=== PATIENT | female | born 1955 | race Caucasian/White ===

== ENCOUNTER 2017-08-07 15:45 | Inpatient (IN) | payer MEDICARE, MEDICAID ==
[2017-08-07 16:25] LABS: CHLORIDE,CL 105 mEq/L (98-106); SODIUM,NA 142 mEq/L (136-145)
[2017-08-07] MEDS ORDERED: Sodium Chloride 0.9% 10 ML Syringe FLUSH PRN (17:21)
[2017-08-07] MEDS ORDERED: Furosemide 40 MG/4 ML VIAL IVPUSH ONE (17:38)
[2017-08-07] MEDS ORDERED: Insulin Detemir 100 Units/ML 3 ML Pen SUBCUT SCH ×2 (18:00→21:00)
[2017-08-07] MEDS: Insulin Aspart 100 Units/ML 3 ML Pen SUBCUT SCH (18:06)
[2017-08-07] MEDS: Diltiazem 25 MG/5 ML SDV IVPUSH ONE ×2 (18:07→18:40)
[2017-08-07] MEDS: Diltiazem 120 MG Cap.CD PO SCH (18:12)
[2017-08-07] MEDS ORDERED: Warfarin 5 MG Tab PO STA (18:29)
[2017-08-07] MEDS ORDERED: Diltiazem 25 MG/5 ML SDV ONE (18:51)
[2017-08-07] MEDS ORDERED: Enoxaparin 40 MG/0.4 ML Syringe SUBCUT SCH (19:00)
[2017-08-07] MEDS: Insulin Detemir 100 Units/ML 3 ML Pen SUBCUT SCH (21:02)
[2017-08-07] MEDS ORDERED: Metoprolol Tartrate 5 MG/5 ML SDV IVPUSH ONE (21:45)
[2017-08-08] MEDS: Diltiazem 120 MG Cap.CD PO SCH (07:35)
[2017-08-08] MEDS: metFORMIN 500 MG Tab PO SCH (07:35)
[2017-08-08] MEDS: atorvaSTATin 20 MG Tab PO SCH (07:35)
[2017-08-08 08:04] LABS: CHLORIDE,CL 104 mEq/L (98-106); SODIUM,NA 142 mEq/L (136-145)
[2017-08-08] MEDS: Insulin Aspart 100 Units/ML 3 ML Pen SUBCUT SCH ×2 (08:30→17:57)
[2017-08-08] MEDS ORDERED: Diltiazem 120 MG Cap.CD PO ONE (09:18)
[2017-08-08] MEDS: Insulin Detemir 100 Units/ML 3 ML Pen SUBCUT SCH ×2 (09:47→20:38)
--- NOTE | 2017-08-08 11:34 | PCM.PN ---
- General Info Date of Service: 08/08/17 Admission Dx/Problem (Free Text): New onset atrial fib with RVR Functional Status: Reports: Pain Controlled, Tolerating Diet, Ambulating - Review of Systems General: Denies: Fever, Weakness, Fatigue HEENT: Reports: No Symptoms Pulmonary: Reports: Shortness of Breath. Denies: Cough Cardiovascular: Reports: Edema. Denies: Chest Pain, Lightheadedness Gastrointestinal: Denies: Abdominal Pain, Nausea, Vomiting Genitourinary: Reports: No Symptoms Musculoskeletal: Reports: No Symptoms Skin: Reports: No Symptoms Neurological: Reports: No Symptoms - Patient Data Vitals - Most Recent: Last Vital Signs Temp 99.1 F 08/08/17 08:00 Pulse 138 H 08/08/17 09:44 Resp 20 08/08/17 08:00 BP 146/71 H 08/08/17 09:44 Pulse Ox 91 L 08/08/17 08:00 Weight - Most Recent: 353 lb 4.8 oz I&O - Last 24 Hours: Intake & Output 08/07/17 08/08/17 08/08/17 22:59 06:59 14:59 Intake Total 365 2600 Output Total 900 750 Balance -535 1850 Lab Results Last 24 Hours: Laboratory Results - last 24 hr 08/07/17 08/07/17 08/07/17 Range/Units 15:56 15:56 17:37 WBC 15.0 H (5.0-10.0) 10^3/uL RBC 4.35 (4.00-5.50) 10^6/uL Hgb 12.7 (12.0-16.0) g/dL Hct 41.5 (37.0-47.0) % MCV 95.4 H (82.0-94.0) fL MCH 29.2 (27.0-32.0) pg MCHC 30.6 L (33.0-38.0) g/dL RDW Coeff of Nelson 13.4 (11.0-15.0) % Plt Count 335 (150-400) 10^3/uL Neut % (Auto) 74.3 (35-85) % Lymph % (Auto) 15.9 (10-55) % Mck[place]ley % (Auto) 7.9 (0-16) % Eos % (Auto) 1.4 (0-5) % Baso % (Auto) 0.5 (0-3) % Neut # (Auto) 11.18 H (1.80-7.00) 10^3/uL Lymph # (Auto) 2.39 (1.00-4.80) 10^3/uL Mck[place]ley # (Auto) 1.19 H (0.00-0.80) 10^3/uL Eos # (Auto) 0.21 (0.00-0.45) 10^3/uL Baso # (Auto) 0.07 10^3/uL PT 12.4 H (9.7-12.3) SEC INR 1.14 (0.92-1.18) Sodium 142 (136-145) mEq/L Potassium 4.5 (3.5-5.0) mEq/L Chloride 105 (98-106) mEq/L Carbon Dioxide 31 (21-32) mmol/L BUN 16 (7-18) mg/dL Creatinine 1.1 H (0.6-1.0) mg/dL Est Cr Clr Drug Dosing TNP Estimated GFR (MDRD) 50 L (>=60) mL/min Glucose 131 H (75-99) mg/dL POC Glucose (75-105) mg/dl Calcium 9.0 (8.4-10.1) mg/dL Total Bilirubin 0.9 (0.0-1.0) mg/dL AST 20 (15-37) U/L ALT 26 (12-78) U/L Alkaline Phosphatase 69 (46-116) U/L NT-Pro-B Natriuret Pep 696 (0-1000) pg/mL Total Protein 7.0 (6.4-8.2) g/dL Albumin 3.1 L (3.4-5.0) g/dL TSH, Ultra Sensitive 1.80 (0.36-5.60) uIU/mL 08/07/17 08/08/17 08/08/17 Range/Units 19:33 05:11 07:23 WBC 15.3 H (5.0-10.0) 10^3/uL RBC 4.25 (4.00-5.50) 10^6/uL Hgb 12.3 (12.0-16.0) g/dL Hct 40.5 (37.0-47.0) % MCV 95.3 H (82.0-94.0) fL MCH 28.9 (27.0-32.0) pg MCHC 30.4 L (33.0-38.0) g/dL RDW Coeff of Nelson 13.4 (11.0-15.0) % Plt Count 331 (150-400) 10^3/uL Neut % (Auto) 73.7 (35-85) % Lymph % (Auto) 15.9 (10-55) % Mck[place] % (Auto) 8.5 (0-16) % Eos % (Auto) 1.5 (0-5) % Baso % (Auto) 0.4 (0-3) % Neut # (Auto) 11.25 H (1.80-7.00) 10^3/uL Lymph # (Auto) 2.43 (1.00-4.80) 10^3/uL [place]ck[place]ley # (Auto) 1.29 H (0.00-0.80) 10^3/uL Eos # (Auto) 0.23 (0.00-0.45) 10^3/uL Baso # (Auto) 0.06 10^3/uL PT (9.7-12.3) SEC INR (0.92-1.18) Sodium (136-145) mEq/L Potassium (3.5-5.0) mEq/L Chloride (98-106) mEq/L Carbon Dioxide (21-32) mmol/L BUN (7-18) mg/dL Creatinine (0.6-1.0) mg/dL Est Cr Clr Drug Dosing Estimated GFR (MDRD) (>=60) mL/min Glucose (75-99) mg/dL POC Glucose 165 H 83 (75-105) mg/dl Calcium (8.4-10.1) mg/dL Total Bilirubin (0.0-1.0) mg/dL AST (15-37) U/L ALT (12-78) U/L Alkaline Phosphatase (46-116) U/L NT-Pro-B Natriuret Pep (0-1000) pg/mL Total Protein (6.4-8.2) g/dL Albumin (3.4-5.0) g/dL TSH, Ultra Sensitive (0.36-5.60) uIU/mL 08/08/17 08/08/17 Range/Units 07:45 07:45 WBC (5.0-10.0) 10^3/uL RBC (4.00-5.50) 10^6/uL Hgb (12.0-16.0) g/dL Hct (37.0-47.0) % MCV (82.0-94.0) fL MCH (27.0-32.0) pg MCHC (33.0-38.0) g/dL RDW Coeff of Nelson (11.0-15.0) % Plt Count (150-400) 10^3/uL Neut % (Auto) (35-85) % Lymph % (Auto) (10-55) % [place] % (Auto) (0-16) % Eos % (Auto) (0-5) % Baso % (Auto) (0-3) % Neut # (Auto) (1.80-7.00) 10^3/uL Lymph # (Auto) (1.00-4.80) 10^3/uL [place] # (Auto) (0.00-0.80) 10^3/uL Eos # (Auto) (0.00-0.45) 10^3/uL Baso # (Auto) 10^3/uL PT 12.5 H (9.7-12.3) SEC INR 1.15 (0.92-1.18) Sodium 142 (136-145) mEq/L Potassium 4.3 (3.5-5.0) mEq/L Chloride 104 (98-106) mEq/L Carbon Dioxide 32 (21-32) mmol/L BUN 15 (7-18) mg/dL Creatinine 0.9 (0.6-1.0) mg/dL Est Cr Clr Drug Dosing 65.38 Estimated GFR (MDRD) > 60 (>=60) mL/min Glucose 92 D (75-99) mg/dL POC Glucose (75-105) mg/dl Calcium 8.9 (8.4-10.1) mg/dL Total Bilirubin (0.0-1.0) mg/dL AST (15-37) U/L ALT (12-78) U/L Alkaline Phosphatase (46-116) U/L NT-Pro-B Natriuret Pep (0-1000) pg/mL Total Protein (6.4-8.2) g/dL Albumin (3.4-5.0) g/dL TSH, Ultra Sensitive (0.36-5.60) uIU/mL Med Orders - Current: Current Medications Atorvastatin Calcium (Lipitor) 20 mg PO DAILY [facility] Last Admin: 08/08/17 07:35 Dose: 20 mg Diltiazem HCl (Cardizem Cd) 240 mg PO DAILY [facility] Enoxaparin Sodium (Lovenox) 40 mg SUBCUT Q24H [facility] Last Admin: 08/07/17 18:36 Dose: 40 mg Insulin Aspart (Novolog) 45 unit SUBCUT BIDMEALS [facility] Last Admin: 08/08/17 08:30 Dose: Not Given Insulin Detemir (Levemir) 125 unit SUBCUT 0900,2100 [facility] Last Admin: 08/08/17 09:47 Dose: 125 unit Metformin HCl (Glucophage) 1,000 mg PO DAILY [facility] Last Admin: 08/08/17 07:35 Dose: 1,000 mg Rivaroxaban 20 Mg (Tab Non Form) 1 each PO DAILY@1200 [facility] Sodium Chloride (Saline Flush) 10 ml FLUSH ASDIRECTED PRN PRN Reason: Keep Vein Open Discontinued Medications Diltiazem HCl (Diltiazem) 10 mg IVPUSH ONETIME ONE Stop: 08/07/17 17:33 Last Admin: 08/07/17 18:40 Dose: 10 mg Diltiazem HCl (Cardizem Cd) 120 mg PO DAILY [facility] Last Admin: 08/08/17 07:35 Dose: 120 mg Diltiazem HCl (Diltiazem) Confirm Administered Dose 25 mg .ROUTE .STK-MED ONE Stop: 08/07/17 18:52 Last Admin: 08/07/17 18:43 Dose: Not Given Diltiazem HCl (Cardizem Cd) 120 mg PO ONETIME ONE Stop: 08/08/17 09:19 Last Admin: 08/08/17 09:44 Dose: 120 mg Furosemide (Lasix) 40 mg IVPUSH ONETIME ONE Stop: 08/07/17 17:39 Last Admin: 08/07/17 18:12 Dose: 40 mg Insulin Detemir (Levemir) 145 unit SUBCUT BID [facility] Last Admin: 08/07/17 18:32 Dose: Not Given Insulin Detemir (Levemir) 145 unit SUBCUT BID@0900,2100 [facility] Metoprolol Tartrate (Lopressor) 2.5 mg IVPUSH ONETIME ONE Stop: 08/07/17 21:46 Last Admin: 08/07/17 22:07 Dose: 2.5 mg Warfarin Sodium (Coumadin) 5 mg PO DAILY@1200 [facility] Warfarin Sodium (Coumadin) 5 mg PO ONETIME STA Stop: 08/07/17 18:30 Last Admin: 08/07/17 18:51 Dose: 5 mg - Exam General: Alert, Oriented HEENT: Mucous Membr. Moist/[place] Neck: Supple Lungs: Clear to Auscultation, Normal Respiratory Effort Cardiovascular: Irregular Rhythm, Tachycardia GI/Abdominal Exam: Normal Bowel Sounds, Soft, Non-Tender Skin: Warm, Dry Neurological: No New Focal Deficit - Problem List & Annotations (1) Atrial fibrillation with RVR SNOMED Code(s): 710541961389926 Code(s): I48.91 - UNSPECIFIED ATRIAL FIBRILLATION Status: Acute Priority : High Current Visit: Yes - Problem List Review Problem List Initiated/Reviewed/Updated: Yes - My Orders Last 24 Hours: My Active Orders 08/08/17 12:00 Non-Formulary Medication [NF Drug] 1 each PO DAILY@1200 08/09/17 08:00 Diltiazem [Cardizem CD] 240 mg PO DAILY - Assessment Assessment:: Atrial Fib with RVR - Plan Plan:: Patient denies any chest pain. Does still feel short of breath with exertion. Cardiac rhythm still noted atrial fib with rapid response in the 130s, denies palpitations. States "doesn't even feel it". Was given Cardizem x2 IV doses and an oral dose yesterday with minimal response. Was given a dose of IV Metoprolol last night which helped minimally. Oxygen sats are within normal range. BP stable. Will increase Cardizem to 240 mg daily. Patient questioning use of Coumadin, will switch her to Xarelto. Samples found to start patient on 20 mg daily at HS , first dose today. Continue to monitor telemetry and blood pressures. Reevaluate discharge potential in am.
[2017-08-08] MEDS ORDERED: Warfarin 5 MG Tab PO SCH (12:00)
[2017-08-08] MEDS: [UNRECOGNIZED DRUG - REMARK] PO SCH (12:12)
[2017-08-08] MEDS ORDERED: Temazepam 15 MG Cap PO PRN (20:39)
[2017-08-08] MEDS ORDERED: Metoprolol Tartrate 50 MG Tab PO ONE (23:14)
[2017-08-09] MEDS: Diltiazem 120 MG Cap.CD PO SCH (07:40)
[2017-08-09] MEDS: atorvaSTATin 20 MG Tab PO SCH (07:49)
[2017-08-09] MEDS: Insulin Aspart 100 Units/ML 3 ML Pen SUBCUT SCH ×2 (07:49→18:11)
[2017-08-09] MEDS: metFORMIN 500 MG Tab PO SCH (07:49)
[2017-08-09] MEDS: Insulin Detemir 100 Units/ML 3 ML Pen SUBCUT SCH ×2 (09:19→20:57)
[2017-08-09] MEDS: [UNRECOGNIZED DRUG - REMARK] PO SCH (12:16)
[2017-08-09] MEDS: Metoprolol Tartrate 25 MG Tab PO SCH (20:55)
--- NOTE | 2017-08-09 22:31 | PCM.PN ---
- General Info Date of Service: 08/09/17 Admission Dx/Problem (Free Text): New onset atrial fib with RVR Functional Status: Reports: Pain Controlled, Tolerating Diet, Ambulating - Review of Systems General: Reports: Fatigue. Denies: Fever, Weakness HEENT: Reports: Rhinitis Pulmonary: Reports: Shortness of Breath. Denies: Cough, Sputum Cardiovascular: Denies: Chest Pain, Edema, Lightheadedness Gastrointestinal: Denies: Abdominal Pain, Nausea, Vomiting Genitourinary: Reports: No Symptoms Musculoskeletal: Reports: No Symptoms Skin: Reports: No Symptoms Neurological: Reports: No Symptoms - Patient Data Vitals - Most Recent: Last Vital Signs Temp 98.8 F 08/09/17 20:00 Pulse 99 08/09/17 20:55 Resp 16 08/09/17 20:00 BP 105/70 08/09/17 20:55 Pulse Ox 94 L 08/09/17 20:00 Weight - Most Recent: 356 lb 8 oz I&O - Last 24 Hours: Intake & Output 08/09/17 08/09/17 08/09/17 06:59 14:59 22:59 Intake Total 900 1500 Output Total 1000 1200 Balance -100 300 Lab Results Last 24 Hours: Laboratory Results - last 24 hr 08/08/17 08/08/17 08/09/17 Range/Units 17:16 20:35 07:20 PT 14.3 H (9.7-12.3) SEC INR 1.31 H (0.92-1.18) POC Glucose 173 H 107 H (75-105) mg/dl 08/09/17 08/09/17 08/09/17 Range/Units 07:43 11:39 17:28 PT (9.7-12.3) SEC INR (0.92-1.18) POC Glucose 53 L 95 56 L (75-105) mg/dl 08/09/17 Range/Units 20:36 PT (9.7-12.3) SEC INR (0.92-1.18) POC Glucose 179 H (75-105) mg/dl Med Orders - Current: Current Medications Atorvastatin Calcium (Lipitor) 20 mg PO DAILY [facility] Last Admin: 08/09/17 07:49 Dose: 20 mg Diltiazem HCl (Cardizem Cd) 240 mg PO DAILY [facility] Last Admin: 08/09/17 07:40 Dose: 240 mg Insulin Aspart (Novolog) 45 unit SUBCUT BIDMEALS [facility] Last Admin: 08/09/17 18:11 Dose: Not Given Insulin Detemir (Levemir) 125 unit SUBCUT 0900,2100 [facility] Last Admin: 08/09/17 20:57 Dose: 125 unit Metformin HCl (Glucophage) 1,000 mg PO DAILY [facility] Last Admin: 08/09/17 07:49 Dose: 1,000 mg Metoprolol Tartrate (Lopressor) 37.5 mg PO BID [facility] Last Admin: 08/09/17 20:55 Dose: 37.5 mg Rivaroxaban 20 Mg (Tab Non Form) 1 each PO DAILY@1200 [facility] Last Admin: 08/09/17 12:16 Dose: 1 each Sodium Chloride (Saline Flush) 10 ml FLUSH ASDIRECTED PRN PRN Reason: Keep Vein Open Temazepam (Restoril) 15 mg PO BEDTIME PRN PRN Reason: Insomnia Last Admin: 08/08/17 21:01 Dose: 15 mg Discontinued Medications Diltiazem HCl (Diltiazem) 10 mg IVPUSH ONETIME ONE Stop: 08/07/17 17:33 Last Admin: 08/07/17 18:40 Dose: 10 mg Diltiazem HCl (Cardizem Cd) 120 mg PO DAILY [facility] Last Admin: 08/08/17 07:35 Dose: 120 mg Diltiazem HCl (Diltiazem) Confirm Administered Dose 25 mg .ROUTE .STK-MED ONE Stop: 08/07/17 18:52 Last Admin: 08/07/17 18:43 Dose: Not Given Diltiazem HCl (Cardizem Cd) 120 mg PO ONETIME ONE Stop: 08/08/17 09:19 Last Admin: 08/08/17 09:44 Dose: 120 mg Enoxaparin Sodium (Lovenox) 40 mg SUBCUT Q24H [facility] Last Admin: 08/07/17 18:36 Dose: 40 mg Furosemide (Lasix) 40 mg IVPUSH ONETIME ONE Stop: 08/07/17 17:39 Last Admin: 08/07/17 18:12 Dose: 40 mg Insulin Detemir (Levemir) 145 unit SUBCUT BID [facility] Last Admin: 08/07/17 18:32 Dose: Not Given Insulin Detemir (Levemir) 145 unit SUBCUT BID@0900,2100 [facility] Metoprolol Tartrate (Lopressor) 2.5 mg IVPUSH ONETIME ONE Stop: 08/07/17 21:46 Last Admin: 08/07/17 22:07 Dose: 2.5 mg Metoprolol Tartrate (Lopressor) 50 mg PO ONETIME ONE Stop: 08/08/17 23:15 Last Admin: 08/08/17 23:36 Dose: 50 mg Warfarin Sodium (Coumadin) 5 mg PO DAILY@1200 [facility] Warfarin Sodium (Coumadin) 5 mg PO ONETIME STA Stop: 08/07/17 18:30 Last Admin: 08/07/17 18:51 Dose: 5 mg - Exam General: Alert, Oriented HEENT: Mucous Membr. Moist/[place] Neck: Supple Lungs: Clear to Auscultation, Normal Respiratory Effort Cardiovascular: Irregular Rhythm, Tachycardia GI/Abdominal Exam: Normal Bowel Sounds, Soft, Non-Tender Extremities: Normal Inspection, No Pedal Edema Skin: Warm, Dry Neurological: No New Focal Deficit - Problem List & Annotations (1) Atrial fibrillation with RVR SNOMED Code(s): 108453919630388 Code(s): I48.91 - UNSPECIFIED ATRIAL FIBRILLATION Status: Acute Priority : High Current Visit: Yes - Problem List Review Problem List Initiated/Reviewed/Updated: Yes - My Orders Last 24 Hours: My Active Orders 08/09/17 08:00 Diltiazem [Cardizem CD] 240 mg PO DAILY 08/09/17 20:00 Metoprolol Tartrate [Lopressor] 37.5 mg PO BID - Assessment Assessment:: Atrial Fib with RVR - Plan Plan:: Patient denies any chest pain. Does still feel short of breath with exertion. Cardiac rhythm still noted atrial fib with rapid response in the 130s, denies palpitations. States "doesn't even feel it". Was given Cardizem x2 IV doses and an oral dose yesterday with minimal response. Was given a dose of IV Metoprolol last night which helped minimally. Oxygen sats are within normal range. BP stable. Will increase Cardizem to 240 mg daily. Patient questioning use of Coumadin, will switch her to Xarelto. Samples found to start patient on 20 mg daily at HS , first dose today. Continue to monitor telemetry and blood pressures. Reevaluate discharge potential in am. 08-09-2017 Patient continues to complain of SOB with exertion. No chest pain. Does still feel somewhat weak. No palpitations. Continues to be in atrial fib, rate 110s. Was given Metoprolol 50 mg last evening for rate control as rate was in 140s, tolerated well. Blood pressure down this am at 100/66, repeat an hour later after being up and about 133/59. Started on Xarelto last evening. Will continue with Cardizem 240 mg daily. Start Metoprolol 37.5 mg BID. Will obtain echo today. Will have patient follow up with Dr. Crump after discharge. Possible discharge home tomorrow if continues to feel well and rate within better control.
[2017-08-10] MEDS: metFORMIN 500 MG Tab PO SCH (08:10)
[2017-08-10] MEDS: atorvaSTATin 20 MG Tab PO SCH (08:11)
[2017-08-10] MEDS: Insulin Aspart 100 Units/ML 3 ML Pen SUBCUT SCH (08:13)
[2017-08-10] MEDS: Insulin Detemir 100 Units/ML 3 ML Pen SUBCUT SCH (08:14)
[2017-08-10] MEDS: Metoprolol Tartrate 25 MG Tab PO SCH (08:18)
[2017-08-10] MEDS: Diltiazem 120 MG Cap.CD PO SCH (08:21)
--- NOTE | 2017-08-10 12:57 | PCM.DCSUM1 ---
Discharge Summary - Hospital Course Free Text/Narrative:: Patient admitted by Kirsten Cleveland for new onset atrial fib with rapid ventricular response. Patient denied any palpitations or chest pain but had been experiencing more short of breath with any exertion. Ferguson had increase in weight and edema. Admitted for further care of this. Started on Coumadin. Given Cardizem IV for rate control and started on oral Cardizem. Cardiac monitoring. - Discharge Data Discharge Date: 08/10/17 Discharge Disposition: Home, Self-Care 01 Condition: Good - Discharge Diagnosis/Problem(s) (1) Atrial fibrillation with RVR SNOMED Code(s): 867914860889502 ICD Code: I48.91 - UNSPECIFIED ATRIAL FIBRILLATION Status: Acute Priority : High Current Visit: Yes - Patient Summary/Data Complications: none Consults: Consultations 08/07/17 17:21 Consult to [employer] [CONS] Routine Hospital Course: Patient feeling well today. Heart rate stable around 105. Did have multiple medications changes and adjustments to get better control of her heart rate. Initially given IV Cardizem x2 doses and oral Cardizem 120 mg. On admit day one , was given Metoprolol IV for rate in the 150s. Cardizem was increased to 240 mg and ultimately metoprolol was added to get better rate control. Patient started on Coumadin on admit but preferred to switch to Xarelto due to convenience and her concerns with bleeding if "out of control". Does see improvement with shortness of breath, more back to her norm. Blood sugars have been in fairly good control. Echocardiogram done, await result. Will have patient have further follow up with Dr. Crump when comes to [facility] for further treatment and evaluation of new onset atrial fib. - Patient Instructions Diet: Heart Healthy Diet, Diabetic Diet Activity: As Tolerated - Discharge Plan Prescriptions/Med Rec: Diltiazem HCl [Diltiazem ER] 240 mg PO DAILY #30 cap.er.deg Lisinopril 5 mg PO DAILY #30 tablet Metoprolol Tartrate [Lopressor] 37.5 mg PO BID #45 tablet Rivaroxaban [Xarelto] 20 mg PO DAILY #30 tablet Home Medications: Home Meds Ascorbic Acid [Vitamin C] 1 cap PO DAILY 08/07/17 [History] Cholecalciferol (Vitamin D3) [Vitamin D] 1 cap PO DAILY 08/07/17 [History] Furosemide 20 mg PO DAILY 08/07/17 [History] Garlic 1 cap PO DAILY 08/07/17 [History] Insulin Aspart [Novolog Flexpen] 45 - 80 units SUBCUT BID 08/07/17 [History] Insulin Detemir [Levemir Flextouch] 125 units SUBCUT BID 08/07/17 [History] Multivitamin [Multivitamins] 1 cap PO DAILY 08/07/17 [History] Vitamin B Complex [B Complex] 1 cap PO DAILY 08/07/17 [History] Vitamin E 1,000 units PO DAILY 08/07/17 [History] atorvaSTATin [Lipitor] 20 mg PO DAILY 08/07/17 [History] metFORMIN [Glucophage] 1,000 mg PO DAILY 08/07/17 [History] Diltiazem HCl [Diltiazem ER] 240 mg PO DAILY #30 cap.er.deg 08/10/17 [Rx] Lisinopril 5 mg PO DAILY #30 tablet 08/10/17 [Rx] Metoprolol Tartrate [Lopressor] 37.5 mg PO BID #45 tablet 08/10/17 [Rx] Rivaroxaban [Xarelto] 20 mg PO DAILY #30 tablet 08/10/17 [Rx] Patient Handouts: Atrial Fibrillation Referrals: Kirsten Cleveland PA-C [Family Provider] - (Follow up with Kirsten Cleveland in one week. Will need follow up with Dr. Crump for further treatment of atrial fib) - Discharge Summary/Plan Comment DC Time >30 min.: No Discharge Summary/Plan Comment: Discharge home. Will continue with Cardizem 240 mg daily and Metoprolol 37.5 mg BID. Reduce Lisinopril to 5 mg daily. Continue Xarelto 20 mg daily. Follow up with Kirsten Cleveland PA-C and Dr. Crump. - General Info Date of Service: 08/10/17 Admission Dx/Problem (Free Text: New onset atrial fib with RVR Functional Status: Reports: Pain Controlled, Tolerating Diet, Ambulating - Review of Systems General: Denies: Fever, Weakness, Fatigue, Malaise HEENT: Reports: No Symptoms Pulmonary: Reports: Shortness of Breath. Denies: Sputum Cardiovascular: Reports: Edema. Denies: Chest Pain, Lightheadedness Gastrointestinal: Denies: Abdominal Pain, Nausea, Vomiting Genitourinary: Reports: No Symptoms Musculoskeletal: Reports: No Symptoms Skin: Reports: No Symptoms Neurological: Reports: No Symptoms - Patient Data Vitals - Most Recent: Last Vital Signs Temp 97.4 F 08/10/17 08:00 Pulse 91 08/10/17 08:21 Resp 18 08/10/17 08:00 BP 119/88 08/10/17 08:21 Pulse Ox 92 L 08/10/17 08:00 Weight - Most Recent: 355 lb 6.4 oz I&O - Last 24 hours: Intake & Output 08/09/17 08/10/17 08/10/17 22:59 06:59 14:59 Intake Total 1500 1100 Output Total 1200 700 Balance 300 400 Lab Results - Last 24 hrs: Laboratory Results - last 24 hr 08/09/17 08/09/17 08/10/17 Range/Units 17:28 20:36 08:07 POC Glucose 56 L 179 H 72 L (75-105) mg/dl 08/10/17 Range/Units 12:01 POC Glucose 91 (75-105) mg/dl Med Orders - Current: Current Medications Atorvastatin Calcium (Lipitor) 20 mg PO DAILY [facility] Last Admin: 08/10/17 08:11 Dose: 20 mg Diltiazem HCl (Cardizem Cd) 240 mg PO DAILY [facility] Last Admin: 08/10/17 08:21 Dose: 240 mg Insulin Aspart (Novolog) 45 unit SUBCUT BIDMEALS [facility] Last Admin: 08/10/17 08:13 Dose: Not Given Insulin Detemir (Levemir) 125 unit SUBCUT 0900,2100 [facility] Last Admin: 08/10/17 08:14 Dose: 125 unit Metformin HCl (Glucophage) 1,000 mg PO DAILY [facility] Last Admin: 08/10/17 08:10 Dose: 1,000 mg Metoprolol Tartrate (Lopressor) 37.5 mg PO BID [facility] Last Admin: 08/10/17 08:18 Dose: 37.5 mg Rivaroxaban 20 Mg (Tab Non Form) 1 each PO DAILY@1200 [facility] Last Admin: 08/09/17 12:16 Dose: 1 each Sodium Chloride (Saline Flush) 10 ml FLUSH ASDIRECTED PRN PRN Reason: Keep Vein Open Temazepam (Restoril) 15 mg PO BEDTIME PRN PRN Reason: Insomnia Last Admin: 02/20/18 21:01 Dose: 15 mg Discontinued Medications Diltiazem HCl (Diltiazem) 10 mg IVPUSH ONETIME ONE Stop: 08/07/17 17:33 Last Admin: 08/07/17 18:40 Dose: 10 mg Diltiazem HCl (Cardizem Cd) 120 mg PO DAILY [facility] Last Admin: 08/08/17 07:35 Dose: 120 mg Diltiazem HCl (Diltiazem) Confirm Administered Dose 25 mg .ROUTE .STK-MED ONE Stop: 08/07/17 18:52 Last Admin: 08/07/17 18:43 Dose: Not Given Diltiazem HCl (Cardizem Cd) 120 mg PO ONETIME ONE Stop: 08/08/17 09:19 Last Admin: 08/08/17 09:44 Dose: 120 mg Enoxaparin Sodium (Lovenox) 40 mg SUBCUT Q24H [facility] Last Admin: 08/07/17 18:36 Dose: 40 mg Furosemide (Lasix) 40 mg IVPUSH ONETIME ONE Stop: 08/07/17 17:39 Last Admin: 08/07/17 18:12 Dose: 40 mg Insulin Detemir (Levemir) 145 unit SUBCUT BID [facility] Last Admin: 08/07/17 18:32 Dose: Not Given Insulin Detemir (Levemir) 145 unit SUBCUT BID@0900,2100 [facility] Metoprolol Tartrate (Lopressor) 2.5 mg IVPUSH ONETIME ONE Stop: 08/07/17 21:46 Last Admin: 08/07/17 22:07 Dose: 2.5 mg Metoprolol Tartrate (Lopressor) 50 mg PO ONETIME ONE Stop: 08/08/17 23:15 Last Admin: 08/08/17 23:36 Dose: 50 mg Warfarin Sodium (Coumadin) 5 mg PO DAILY@1200 [facility] Warfarin Sodium (Coumadin) 5 mg PO ONETIME [facility] Stop: 08/07/17 18:30 Last Admin: 08/07/17 18:51 Dose: 5 mg - Exam General: Reports: Alert, Oriented HEENT: Reports: Mucous Membr. Moist/[place] Neck: Reports: Supple Lungs: Reports: Clear to Auscultation, Normal Respiratory Effort Cardiovascular: Reports: Irregular Rhythm, Tachycardia GI/Abdominal Exam: Normal Bowel Sounds, Soft, Non-Tender Extremities: Normal Inspection, Pedal Edema Skin: Reports: Warm, Dry Neurological: Reports: No New Focal Deficit *Q Meaningful Use (DIS) - VTE *Q VTE Criteria *Q: - Stroke *Q Stroke Criteria *Q: - AMI *Q AMI Criteria *Q:
[2017-08-10] MEDS: [UNRECOGNIZED DRUG - REMARK] PO SCH (13:58)
== END 2017-08-10 14:15 | disposition home or self-care (01) | DRG 310 ==
LOC: CC.MS 15:45 → CC.FCMC 15:45 → UNDOADMIN 16:43 → CC.MS 16:43 → UNDOADMIN 17:22 → CC.MS 08-09 11:08 → UNDOADMIN 08-09 11:08
PROVIDERS: ADMIT Physician Assistant Medical; ATTEND Family Medicine
DX: I48.91 Unspecified atrial fibrillation (principal); E11.9 Type 2 diabetes mellitus without complications; R06.02 Shortness of breath; R60.9 Edema, unspecified; R63.5 Abnormal weight gain; Z79.84 Long term (current) use of oral hypoglycemic drugs; Z79.4 Long term (current) use of insulin; Z79.899 Other long term (current) drug therapy
CPT/HCPCS: 36415; 71046; 80048; 80053; 82962; 83880; 84443; 85025; 85610; 93005; 93306; A9270-GY; J1650; J1815-GY; J1940; J3490

== ENCOUNTER 2017-08-17 16:06 | Emergency (ER) | payer MEDICARE, MEDICAID ==
[2017-08-17] MEDS: Glucose Gel 15 GM in 37.5 GM Tube PO ONE (16:15)
[2017-08-17] MEDS: Glucagon,Human Recombinant 1 MG Vial IM ONE (16:22)
[2017-08-17] MEDS: 50% Dextrose in Water 50 ML Syringe IVPUSH ONE (16:37)
[2017-08-17] MEDS: Dextrose 5%-0.45% NaCl 1,000 ML IV SCH (16:38)
[2017-08-17 17:03] LABS: CHLORIDE,CL 103 mEq/L (98-106); SODIUM,NA 141 mEq/L (136-145)
[2017-08-17] MEDS: Amiodarone 450 MG in Dextrose 5% in Water 250 ML IV SCH ×2 (17:24)
[2017-08-17] MEDS: Furosemide 20 MG/2 ML VIAL IVPUSH ONE (17:36)
--- NOTE | 2017-08-17 18:05 | EDM.PDOC ---
ED HPI GENERAL MEDICAL PROBLEM - General Chief Complaint: General Stated Complaint: Hypoglycemia, SOB Time Seen by Provider: 08/17/17 16:10 Source of Information: Reports: Patient, EMS, RN History Limitations: Reports: Respiratory Distress - History of Present Illness INITIAL COMMENTS - FREE TEXT/NARRATIVE: Pt brought in by the [facility] after calling them for SOB and cough that was getting worse. Was very SOB when they arrived. Blood sugar was in the 30's when checked and she was given oral glucose enroute. Blood sugar when arriving here was still in the 30's. She stated that she had ate normally today and took her normal insulin and her blood sugars had been normal until this time. She was alert and very SOB. Respirations were in the 30's and sats in the low 90's on 10 liters nonrebreather mask. Wheezing noted to all. Rales to all lung frank. Was given IM glucagon as no IV access at the time. blood sugars did slowly rebound after 50% IV dextrose was given when IV obtained. Polyplus-transfection was connected to during this time to assist with the rapid a fib with RVR in the 150 -160's. cpap was applied which did help her feel like she was able to breathe better and sats did stabilize at 90. Dr. Otero from [facility] did contact truck safety inspector from [facility] who recommended Amiodarone which was given. Iv amiodarone drip then started. [facility] was not able to take pt as they had no bed. He then contacted ER in [facility] Dr. Castillo who was able to accept pt and she will be transported by [facility]. SHe was recently discharged from here with new onset afib with RVR that was controlled on her meds at discharge. She has cardiology appt coming up in the near future. Has been on eloquis since then. Had recent echo with 40% ejection fraction. Onset: Gradual Duration: Getting Worse Worsens with: Reports: Movement Associated Symptoms: Reports: Cough, cough w sputum, Shortness of Breath. Denies: Chest Pain, Fever/Chills - Related Data Allergies Allergy/AdvReac Type Severity Reaction Status Date / Time No Known Allergies Allergy Verified 08/17/17 17:26 Home Meds: Home Meds Ascorbic Acid [Vitamin C] 1 cap PO DAILY 08/07/17 [History] Cholecalciferol (Vitamin D3) [Vitamin D] 1 cap PO DAILY 08/07/17 [History] Furosemide 20 mg PO DAILY 08/07/17 [History] Garlic 1 cap PO DAILY 08/07/17 [History] Insulin Aspart [Novolog Flexpen] 45 - 80 units SUBCUT BID 08/07/17 [History] Insulin Detemir [Levemir Flextouch] 125 units SUBCUT BID 08/07/17 [History] Multivitamin [Multivitamins] 1 cap PO DAILY 08/07/17 [History] Vitamin B Complex [B Complex] 1 cap PO DAILY 08/07/17 [History] Vitamin E 1,000 units PO DAILY 08/07/17 [History] atorvaSTATin [Lipitor] 20 mg PO DAILY 08/07/17 [History] metFORMIN [Glucophage] 1,000 mg PO DAILY 08/07/17 [History] Diltiazem HCl [Diltiazem ER] 240 mg PO DAILY #30 cap.er.deg 08/10/17 [Rx] Lisinopril 5 mg PO DAILY #30 tablet 08/10/17 [Rx] Metoprolol Tartrate [Lopressor] 37.5 mg PO BID #45 tablet 08/10/17 [Rx] Rivaroxaban [Xarelto] 20 mg PO DAILY #30 tablet 08/10/17 [Rx] Past Medical History HEENT History: Reports: Impaired Vision Cardiovascular History: Reports: High Cholesterol, Hypertension Endocrine/Metabolic History: Reports: Diabetes, Type II - Past Surgical History Musculoskeletal Surgical History: Reports: Shoulder Surgery, Other (See Below) Other Musculoskeletal Surgeries/Procedures:: knee surgery Social & Family History - Tobacco Use Smoking Status *Q: Former Smoker Used Tobacco, but Quit: Yes Month Tobacco Last Used: 2008 - Caffeine Use Caffeine Use: Reports: Coffee - Recreational Drug Use Recreational Drug Use: No - Living Situation & Occupation Living situation: Reports: Single, Alone Occupation: Disabled ED ROS GENERAL - Review of Systems Review Of Systems: Unable To Obtain Respiratory: Reports: Shortness of Breath, Wheezing, Cough ED EXAM, GENERAL - Physical Exam Exam: See Below Exam Limited By: Respiratory Distress General Appearance: Alert, Severe Distress Respiratory/Chest: Respiratory Distress, Rales, Wheezing, Accessory Muscle Use Cardiovascular: Irregularly Irregular GI/Abdominal: Normal Bowel Sounds, Soft Extremities: Pedal Edema (1+ bilaterally) Neurological: Alert Skin Exam: Warm, Diaphoretic Course - Vital Signs Last Recorded V/S: Last Vital Signs Temp 98.2 F 08/17/17 16:07 Pulse 95 08/17/17 16:07 Resp 30 H 08/17/17 16:07 BP 138/78 08/17/17 16:07 Pulse Ox 99 08/17/17 16:07 - Orders/Labs/Meds Orders: Active Orders 24 hr Category Date Time Status Insert Arias Catheter [Insert Urinary Catheter] [OM.PC] Care 08/17/17 17:55 Ordered Q24H Oxygen Therapy, ED [RC] ASDIRECTED Care 08/17/17 16:06 Active Urinary Catheter Assessment [RC] ASDIRECTED Care 08/17/17 17:55 Active Chest 1V Frontal [CR] Routine Exams 08/17/17 16:51 Taken CULTURE URINE [RM] Stat Lab 08/17/17 17:58 Received Labs: Laboratory Tests 08/17/17 08/17/17 08/17/17 Range/Units 16:35 16:35 16:35 WBC 17.2 H (5.0-10.0) 10^3/uL RBC 4.71 (4.00-5.50) 10^6/uL Hgb 13.6 (12.0-16.0) g/dL Hct 44.7 (37.0-47.0) % MCV 94.9 H (82.0-94.0) fL MCH 28.9 (27.0-32.0) pg MCHC 30.4 L (33.0-38.0) g/dL RDW Coeff of [place] 13.8 (11.0-15.0) % Plt Count 345 (150-400) 10^3/uL Neut % (Auto) 82.1 (35-85) % Lymph % (Auto) 7.1 L (10-55) % [place] % (Auto) 10.2 (0-16) % Eos % (Auto) 0.1 (0-5) % Baso % (Auto) 0.5 (0-3) % Neut # (Auto) 14.14 H (1.80-7.00) 10^3/uL Lymph # (Auto) 1.22 (1.00-4.80) 10^3/uL [place] # (Auto) 1.76 H (0.00-0.80) 10^3/uL Eos # (Auto) 0.02 (0.00-0.45) 10^3/uL Baso # (Auto) 0.08 10^3/uL D-Dimer, Quantitative 0.44 (0.00-0.50) Sodium 141 (136-145) mEq/L Potassium 4.2 (3.5-5.0) mEq/L Chloride 103 (98-106) mEq/L Carbon Dioxide 30 (21-32) mmol/L BUN 15 (7-18) mg/dL Creatinine 0.8 (0.6-1.0) mg/dL Est Cr Clr Drug Dosing TNP Estimated GFR (MDRD) > 60 (>=60) mL/min Glucose 62 L D (75-99) mg/dL Calcium 8.7 (8.4-10.1) mg/dL Total Bilirubin 0.5 (0.0-1.0) mg/dL AST 46 H (15-37) U/L ALT 46 (12-78) U/L Alkaline Phosphatase 87 (46-116) U/L Lactate Dehydrogenase 235 H (100-190) U/L Creatine Kinase 286 H (21-215) U/L Troponin I 0.025 (0.00-0.06) ng/mL C-Reactive Protein 1.4 H (0.2-0.8) mg/dL NT-Pro-B Natriuret Pep 1632 H (0-1000) pg/mL Total Protein 7.6 (6.4-8.2) g/dL Albumin 3.3 L (3.4-5.0) g/dL Urine Color (YELLOW) Urine Appearance (CLEAR) Urine pH (4.5-8.0) Ur Specific [place] (1.003-1.020) Urine Protein (NEGATIVE) mg/dL Urine Glucose (UA) (NEGATIVE) mg/dL Urine Ketones (NEGATIVE) mg/dL Urine Occult Blood (NEGATIVE) Urine Nitrite (NEGATIVE) Urine Bilirubin (NEGATIVE) Urine Urobilinogen (0.2-1.0) EU/dL Ur Leukocyte Esterase (NEGATIVE) Urine RBC (0-5) /HPF Urine WBC (0-5) /HPF Urine Bacteria (NOT SEEN) /HPF 08/17/17 Range/Units 17:58 WBC (5.0-10.0) 10^3/uL RBC (4.00-5.50) 10^6/uL Hgb (12.0-16.0) g/dL Hct (37.0-47.0) % MCV (82.0-94.0) fL MCH (27.0-32.0) pg MCHC (33.0-38.0) g/dL RDW Coeff of [place] (11.0-15.0) % Plt Count (150-400) 10^3/uL Neut % (Auto) (35-85) % Lymph % (Auto) (10-55) % [place] % (Auto) (0-16) % Eos % (Auto) (0-5) % Baso % (Auto) (0-3) % Neut # (Auto) (1.80-7.00) 10^3/uL Lymph # (Auto) (1.00-4.80) 10^3/uL [place] # (Auto) (0.00-0.80) 10^3/uL Eos # (Auto) (0.00-0.45) 10^3/uL Baso # (Auto) 10^3/uL D-Dimer, Quantitative (0.00-0.50) Sodium (136-145) mEq/L Potassium (3.5-5.0) mEq/L Chloride (98-106) mEq/L Carbon Dioxide (21-32) mmol/L BUN (7-18) mg/dL Creatinine (0.6-1.0) mg/dL Est Cr Clr Drug Dosing Estimated GFR (MDRD) (>=60) mL/min Glucose (75-99) mg/dL Calcium (8.4-10.1) mg/dL Total Bilirubin (0.0-1.0) mg/dL AST (15-37) U/L ALT (12-78) U/L Alkaline Phosphatase (46-116) U/L Lactate Dehydrogenase (100-190) U/L Creatine Kinase (21-215) U/L Troponin I (0.00-0.06) ng/mL C-Reactive Protein (0.2-0.8) mg/dL NT-Pro-B Natriuret Pep (0-1000) pg/mL Total Protein (6.4-8.2) g/dL Albumin (3.4-5.0) g/dL Urine Color Dark yellow (YELLOW) Urine Appearance Clear (CLEAR) Urine pH 5.0 (4.5-8.0) Ur Specific [place] >= 1.030 H (1.003-1.020) Urine Protein 100 H (NEGATIVE) mg/dL Urine Glucose (UA) Negative (NEGATIVE) mg/dL Urine Ketones Negative (NEGATIVE) mg/dL Urine Occult Blood Trace-intact H (NEGATIVE) Urine Nitrite Positive H (NEGATIVE) Urine Bilirubin Negative (NEGATIVE) Urine Urobilinogen 1.0 (0.2-1.0) EU/dL Ur Leukocyte Esterase Negative (NEGATIVE) Urine RBC 0-5 (0-5) /HPF Urine WBC Not seen (0-5) /HPF Urine Bacteria Many H (NOT SEEN) /HPF Meds: Medications Discontinued Medications Generic Name Dose Route Start Last Admin Trade Name Freq PRN Reason Stop Dose Admin Amiodarone HCl Confirm 08/17/17 17:03 08/17/17 21:34 Cordarone Administered 08/17/17 17:04 Not Given Dose 150 mg .ROUTE .STK-MED ONE Dextrose Confirm 08/17/17 16:05 08/17/17 21:14 Glutose 15 Administered 08/17/17 16:06 Not Given Dose 15 gm .ROUTE .STK-MED ONE Dextrose 15 gm 08/17/17 16:15 08/17/17 16:15 Glutose 15 PO 08/17/17 16:16 15 gm ONETIME ONE Administration Dextrose/Water Confirm 08/17/17 16:16 08/17/17 21:18 Dextrose 50% In Water Administered 08/17/17 16:17 Not Given Dose 50 ml .ROUTE .STK-MED ONE Dextrose/Water 50 ml 08/17/17 16:37 08/17/17 16:37 Dextrose 50% In Water IVPUSH 08/17/17 16:38 50 ml ONETIME ONE Administration Diltiazem HCl Confirm 08/17/17 17:10 08/17/17 19:30 Cardizem Administered 08/17/17 17:11 Not Given Dose 100 mg .ROUTE .STK-MED ONE Furosemide Confirm 08/17/17 17:25 08/17/17 21:20 Lasix Administered 08/17/17 17:26 Not Given Dose 40 mg .ROUTE .STK-MED ONE Furosemide 20 mg 08/17/17 17:36 08/17/17 17:36 Lasix IVPUSH 08/17/17 17:37 20 mg ONETIME ONE Administration Glucagon Confirm 08/17/17 16:10 08/17/17 21:11 Glucagen Administered 08/17/17 16:11 Not Given Dose 1 mg .ROUTE .STK-MED ONE Glucagon Confirm 08/17/17 16:21 08/17/17 21:13 Glucagen Administered 08/17/17 16:22 Not Given Dose 1 mg .ROUTE .STK-MED ONE Glucagon 1 mg 08/17/17 16:22 08/17/17 16:22 Glucagen IM 08/17/17 16:23 1 mg ONETIME ONE Administration Dextrose/Sodium Chloride Confirm 08/17/17 16:24 08/17/17 21:27 Dextrose 5%-1/2 Ns Administered 08/17/17 16:25 Not Given Dose 1,000 mls @ as directed .ROUTE .STK-MED ONE Dextrose/Sodium Chloride 1,000 mls @ 75 mls/hr 08/17/17 21:30 08/17/17 16:38 Dextrose 5%-1/2 Ns IV 75 mls/hr ASDIRECTED RUBI Administration Amiodarone HCl 450 mg/ 259 mls @ 33.3 mls/hr 08/17/17 17:24 08/17/17 17:24 Dextrose/Water IV 33.3 mls/hr ASDIRECTED RUBI Administration - Re-Assessments/Exams Free Text/Narrative Re-Assessment/Exam: 08/17/17 18:11 cpap pressure is increased as sats down in 88-89% and she is using accessory muscles. Sats then did increase to 91%. She continues to use accessory muscles to breathe. Please refer to notes from [facility] for times of meds and results. [address] [facility] here for transfer. REport given to flight team. Pt continues on cpap. blood sugar 88. Respiratory rate in the 20's. Sats are maintaining. Lungs continue to have rales but less wheezing. Risks of transfer discussed with pt to include increase in respiratory distress due to altitude changes. benefits of transfer include higher level of care with cardiology, manufacturing technology analyst, ICU capabilities. Risks of staying would include , increase in respiratory distress, inability to intubate if needed. Pt voices understanding and agrees to transfer to [facility] per helicopter. Departure - Departure Time of Disposition: 19:18 Disposition: DC/Tfer to Acute Hospital 02 Preliminary Cause of *Q: Respiratory Failure Clinical Impression: Atrial fibrillation with RVR, Hypoxia, Hypoglycemic reaction to insulin in type 2 diabetes mellitus CHF exacerbation Qualifiers: Heart failure type: diastolic Qualified Code(s): I50.33 - Acute on chronic diastolic (congestive) heart failure - Discharge Information Referrals: Kirsten Cleveland PA-C [Primary Care Provider] - Forms: ED Department Discharge - Problem List & Annotations (1) CHF exacerbation SNOMED Code(s): 99720536 Code(s): I50.9 - HEART FAILURE, UNSPECIFIED Status: Acute Priority: High Qualifiers: Heart failure type: diastolic Qualified Code(s): I50.33 - Acute on chronic diastolic (congestive) heart failure (2) Hypoxia SNOMED Code(s): 140136124 Code(s): R09.02 - HYPOXEMIA Status: Acute Priority: High (3) Hypoglycemic reaction to insulin in type 2 diabetes mellitus SNOMED Code(s): 59454217803172 Code(s): E11.649 - TYPE 2 DIABETES MELLITUS WITH HYPOGLYCEMIA WITHOUT COMA Status: Acute Priority: High (4) Atrial fibrillation with RVR SNOMED Code(s): 324383536086821 Code(s): I48.91 - UNSPECIFIED ATRIAL FIBRILLATION Status: Acute Priority : High - Problem List Review Problem List Initiated/Reviewed/Updated: Yes - My Orders Last 24 Hours: My Active Orders 08/17/17 16:06 Oxygen Therapy, ED [RC] ASDIRECTED 08/17/17 16:51 Chest 1V Frontal [CR] Routine 08/17/17 17:55 Insert Arias Catheter [Insert Urinary Catheter] [OM.PC] Q24H Urinary Catheter Assessment [RC] ASDIRECTED 08/17/17 17:58 CULTURE URINE [RM] Stat - Assessment/Plan Last 24 Hours: My Active Orders 08/17/17 16:06 Oxygen Therapy, ED [RC] ASDIRECTED 08/17/17 16:51 Chest 1V Frontal [CR] Routine 08/17/17 17:55 Insert Arias Catheter [Insert Urinary Catheter] [OM.PC] Q24H Urinary Catheter Assessment [RC] ASDIRECTED 08/17/17 17:58 CULTURE URINE [RM] Stat Plan: Transfer by [facility] to [facility] in [place].
[2017-08-17] MEDS: Diltiazem 100 MG AdvVial ONE (19:30)
[2017-08-17] MEDS: Glucagon,Human Recombinant 1 MG Vial ONE ×2 (21:11→21:13)
[2017-08-17] MEDS: Glucose Gel 15 GM in 37.5 GM Tube ONE (21:14)
[2017-08-17] MEDS: 50% Dextrose in Water 50 ML Syringe ONE (21:18)
[2017-08-17] MEDS: Furosemide 40 MG/4 ML VIAL ONE (21:20)
[2017-08-17] MEDS: Dextrose 5%-0.45% NaCl 1,000 ML ONE (21:27)
[2017-08-17] MEDS: Amiodarone 150 MG/3 ML SDV ONE (21:34)
== END 2017-08-17 19:45 ==
LOC: CC.ED 16:06
DX: I48.91 Unspecified atrial fibrillation (principal); R09.02 Hypoxemia; E11.649 Type 2 diabetes mellitus with hypoglycemia without coma; I11.0 Hypertensive heart disease with heart failure; I50.33 Acute on chronic diastolic (congestive) heart failure; E78.00 Pure hypercholesterolemia, unspecified; Z87.891 Personal history of nicotine dependence; Z79.899 Other long term (current) drug therapy; Z79.84 Long term (current) use of oral hypoglycemic drugs; Z79.4 Long term (current) use of insulin
CPT/HCPCS: 36415; 71045; 80053; 81001; 82550; 83615; 83880; 84484; 85025; 85379; 86140; 87086; 87088; 87186; 96361; 96365; 96366; 96372; 96375; 99285; A9270-GY; J0282; J1610; J1940; J7042; J7060

== ENCOUNTER 2017-12-27 15:03 | Observation (INO) | payer MEDICARE, MEDICAID ==
--- NOTE | 2017-12-27 15:51 | EDM.PDOC ---
ED HPI GENERAL MEDICAL PROBLEM - General Chief Complaint: General Stated Complaint: dizzy, weakness Time Seen by Provider: 12/27/17 15:50 Source of Information: Reports: Patient, EMS Notes Reviewed History Limitations: Reports: No Limitations - History of Present Illness INITIAL COMMENTS - FREE TEXT/NARRATIVE: Vicky is a 62 year old female, with a PMH of type II DM, hypertension, CHF, hyperlipidemia, atrial fibrillation with RVR, and CKD, who presents to the ED with c/o dizziness, weakness and low blood pressure. She reports that upon awakening this morning she felt more weak and somewhat dizzy. She reports she had some diarrhea last evening, for which she took "5 immodium." She reports this morning her blood pressure was 90s/60s. She then reports she went out to lunch with a friend of hers and had an upset stomach and some diarrhea. She then returned home and had another loose stool. She reports when she got home she laid down because she was feeling dizzy and weak. She then checked her blood pressure and it was 70s/50s. Her blood sugar was 115 at that time. She reports she called her doctor, who advised she present to the ED. She couldn't find a sprinkler driver so she called EMS. She was brought in by the [place] ambulance. She reports that she has been struggling with low blood pressures for the past few weeks. She reports she recently started following with Dr. Kearns in [place]. Her tile mechanic recommended she follow with him as he is more of an cracking unit operator, given her multiple health ailments per patient. She does note that her WBC had been elevated. She reports that Dr. Cochran has been "following it closely and it has came down." She reports she has no other symptoms, outside of the dizziness, weakness, and diarrhea. She denies any recent illness. Denies any fever, chills, decreased appetite, chest pain, cough, shortness of breath, confusion, abdominal pain, vomiting. She does report dyspnea with exertion, however no worse than her baseline. She was hospitalized back in July for new onset atrial fibrillation with RVR , as well as August with respiratory distress due to RSV. She is currently on Xarelto for anticoagulation. She is on a number of cardiac medications for rate control and does report she took all her medications this morning. EKG does show atrial fibrillation with RVR of 112. She reports her lisinopril was recently decreased as she has been hypotensive. She follows with Dr. Yo ( Cardiology). - Related Data Allergies Allergy/AdvReac Type Severity Reaction Status Date / Time No Known Allergies Allergy Verified 12/27/17 17:05 Home Meds: Home Meds Ascorbic Acid [Vitamin C] 1 cap PO DAILY 08/07/17 [History] Cholecalciferol (Vitamin D3) [Vitamin D] 2,000 units PO DAILY 08/07/17 [History] Furosemide 80 mg PO DAILY 08/07/17 [History] Insulin Aspart [Novolog Flexpen] 45 - 80 units SUBCUT BID 08/07/17 [History] Insulin Detemir [Levemir Flextouch] 125 units SUBCUT BID 08/07/17 [History] Multivitamin [Multivitamins] 1 cap PO DAILY 08/07/17 [History] Vitamin B Complex [B Complex] 1 cap PO DAILY 08/07/17 [History] Vitamin E 1,000 units PO DAILY 08/07/17 [History] atorvaSTATin [Lipitor] 20 mg PO DAILY 08/07/17 [History] metFORMIN [Glucophage] 1,000 mg PO DAILY 08/07/17 [History] Rivaroxaban [Xarelto] 20 mg PO DAILY #30 tablet 08/10/17 [Rx] Carvedilol 12.5 mg PO BID 12/27/17 [History] Digoxin 0.125 mg PO DAILY 12/27/17 [History] Diltiazem HCl [Diltiazem ER] 90 mg PO DAILY 12/27/17 [History] Gabapentin [Neurontin] 100 mg PO TID 12/27/17 [History] Lisinopril 2.5 mg PO DAILY 12/27/17 [History] Magnesium Chloride [Mag-64] 2 tab PO BID 12/27/17 [History] Magnesium Oxide [Magnesium] 400 mg PO DAILY 12/27/17 [History] Pantoprazole Sodium 40 mg PO DAILY 12/27/17 [History] Potassium Chloride [Klor-Con M20] 20 meq PO DAILY 12/27/17 [History] Past Medical History HEENT History: Reports: Impaired Vision Cardiovascular History: Reports: High Cholesterol, Hypertension Endocrine/Metabolic History: Reports: Diabetes, Type II - Past Surgical History Musculoskeletal Surgical History: Reports: Shoulder Surgery, Other (See Below) Other Musculoskeletal Surgeries/Procedures:: knee surgery Social & Family History - Tobacco Use Smoking Status *Q: Former Smoker Used Tobacco, but Quit: Yes Month/Year Tobacco Last Used: 09/2008 - Caffeine Use Caffeine Use: Reports: None - Recreational Drug Use Recreational Drug Use: No - Living Situation & Occupation Living situation: Reports: Single, Alone Occupation: Disabled ED ROS GENERAL - Review of Systems Review Of Systems: See Below Constitutional: Reports: Weakness, Fatigue. Denies: Fever, Chills, Decreased Appetite HEENT: Reports: No Symptoms. Denies: Rhinitis, Sinus Problem, Throat Pain Respiratory: Reports: No Symptoms. Denies: Shortness of Breath, Wheezing, Pleuritic Chest Pain, Cough, Sputum, Hemoptysis Cardiovascular: Reports: Blood Pressure Problem, Dyspnea on Exertion, Edema (RLE ), Lightheadedness, Orthopnea. Denies: Chest Pain, Palpitations, Syncope Endocrine: Reports: Fatigue GI/Abdominal: Reports: Diarrhea, Nausea. Denies: Abdominal Pain, Black Stool, Bloody Stool, Constipation, Decreased Appetite, Distension, Vomiting : Denies: Dysuria, Flank Pain, Frequency, Urgency Musculoskeletal: Reports: Joint Pain (knees) Skin: Reports: No Symptoms Neurological: Reports: Dizziness. Denies: Confusion, Headache, Numbness, Syncope, Tingling, Weakness Psychiatric: Reports: No Symptoms Hematologic/Lymphatic: Reports: No Symptoms Immunologic: Reports: No Symptoms ED EXAM, GENERAL - Physical Exam Exam: See Below Exam Limited By: No Limitations General Appearance: Alert, WD/WN, No Apparent Distress Eye Exam: Bilateral Eye: EOMI, Normal Fundi, Normal Inspection, PERRL Ears: Normal External Exam, Normal Canal, Hearing Grossly Normal, Normal TMs Ear Exam: Bilateral Ear: Auricle Normal, Canal Normal, TM normal Nose: Normal Inspection, Normal Mucosa, No Blood Throat/Mouth: Normal Inspection, Normal Lips, Normal Teeth, Normal Gums, Normal Oropharynx, Normal Voice, No Airway Compromise Head: Atraumatic, Normocephalic Neck: Normal Inspection, Supple, Non-Tender, Full Range of Motion Respiratory/Chest: No Respiratory Distress, Lungs Clear, Normal Breath Sounds, No Accessory Muscle Use, Chest Non-Tender Cardiovascular: Normal Peripheral Pulses, Tachycardia, Irregularly Irregular GI/Abdominal: Normal Bowel Sounds, Soft, Non-Tender, No Organomegaly, No Distention, No Abnormal Bruit, No Mass, Other (obese) Back Exam: Normal Inspection, Full Range of Motion. No: CVA Tenderness (L), CVA Tenderness (R) Extremities: Normal Inspection, Normal Range of Motion, Non-Tender, Normal Capillary Refill, Pedal Edema (RLE). No: Increased Warmth, Redness Neurological: Alert, Oriented, CN II-XII Intact, Normal Cognition, Normal Gait, Normal Reflexes, No Motor/Sensory Deficits Psychiatric: Normal Affect, Normal Mood Skin Exam: Warm, Dry, Intact, Normal Color, No Rash Lymphatic: No Adenopathy EKG INTERPRETATION Rhythm: A-Fib Rate (Beats/Min): 112 Course - Vital Signs Last Recorded V/S: Last Vital Signs Temp 98.1 F 12/27/17 22:00 Pulse 96 12/27/17 22:00 Resp 16 12/27/17 22:00 BP 90/60 12/27/17 22:00 Pulse Ox 96 12/27/17 22:00 - Orders/Labs/Meds Orders: Active Orders 24 hr Category Date Time Status Chest 2V [CR] Stat Exams 12/27/17 16:27 Taken Medication Orders Acetaminophen (Tylenol) 650 mg PO Q4H PRN PRN Reason: Pain (Mild 1-3)/fever Last Admin: 12/27/17 20:57 Dose: 650 mg Atorvastatin Calcium (Lipitor) 20 mg PO BEDTIME RUBI Digoxin (Lanoxin) 125 mcg PO DAILY [facility] Furosemide (Lasix) 80 mg PO DAILY [facility] Gabapentin (Neurontin) 100 mg PO TID [facility] Sodium Chloride (Normal Saline) 1,000 mls @ 75 mls/hr IV ASDIRECTED [facility] Last Admin: 12/27/17 18:30 Dose: 75 mls/hr Insulin Aspart (Novolog) 45 unit SUBCUT TIDMEALS [facility] Insulin Aspart (Novolog) 0 unit SUBCUT TIDMEALS [facility]; Protocol Last Admin: 12/27/17 19:00 Dose: Insulin Detemir (Levemir) 125 unit SUBCUT BID [facility] Last Admin: 12/27/17 20:53 Dose: 125 units Magnesium Chloride (Mag-64) mg PO BID [facility] Non-Formulary Medication (Diltiazem Hcl [Diltiazem Er]) 90 mg PO DAILY [facility] Non-Formulary Medication (Magnesium Oxide [Magnesium]) 400 mg PO DAILY [facility] Non-Formulary Medication (Multivitamin [Multivitamins]) 1 cap PO DAILY [facility] Non-Formulary Medication (Potassium Chloride [Klor-Con M20]) 20 meq PO DAILY [facility] Non-Formulary Medication (Rivaroxaban [Xarelto]) 20 mg PO DAILY [facility] Ondansetron HCl (Zofran) 4 mg IV Q6H PRN PRN Reason: Nausea/Vomiting Pantoprazole Sodium (Protonix) 40 mg PO DAILY [facility] Labs: Laboratory Tests 12/27/17 12/27/17 12/27/17 Range/Units 15:31 15:31 15:42 WBC 21.4 H* (5.0-10.0) 10^3/uL RBC 3.94 L (4.00-5.50) 10^6/uL Hgb 12.3 (12.0-16.0) g/dL Hct 37.2 (37.0-47.0) % MCV 94.4 H (82.0-94.0) fL MCH 31.2 (27.0-32.0) pg MCHC 33.1 (33.0-38.0) g/dL RDW Coeff of Nelson 14.4 (11.0-15.0) % Plt Count 366 (150-400) 10^3/uL Add Manual Diff Yes Neutrophils % (Manual) 84 (35-85) % Lymphocytes % (Manual) 11 L (21-55) % Monocytes % (Manual) 5 (2-12) % D-Dimer, Quantitative (0.00-0.50) Sodium 139 (136-145) mEq/L Potassium 4.5 (3.5-5.0) mEq/L Chloride 100 (98-106) mEq/L Carbon Dioxide 28 (21-32) mmol/L BUN 25 H (7-18) mg/dL Creatinine 1.5 H (0.6-1.0) mg/dL Est Cr Clr Drug Dosing 39.23 mL/min Estimated GFR (MDRD) 35 L (>=60) mL/min Glucose 155 H (75-99) mg/dL Calcium 9.6 (8.4-10.1) mg/dL Creatine Kinase 60 (21-215) U/L Troponin I < 0.017 (0.00-0.06) ng/mL C-Reactive Protein 1.4 H (0.2-0.8) mg/dL Urine Color Yellow (YELLOW) Urine Appearance Clear (CLEAR) Urine pH 5.0 (4.5-8.0) Ur Specific Central 1.020 (1.003-1.020) Urine Protein 30 H (NEGATIVE) mg/dL Urine Glucose (UA) Negative (NEGATIVE) mg/dL Urine Ketones Trace H (NEGATIVE) mg/dL Urine Occult Blood Negative (NEGATIVE) Urine Nitrite Negative (NEGATIVE) Urine Bilirubin Negative (NEGATIVE) Urine Urobilinogen 0.2 (0.2-1.0) EU/dL Ur Leukocyte Esterase Trace H (NEGATIVE) Urine RBC Not seen (0-5) /HPF Urine WBC Not seen (0-5) /HPF Ur Epithelial Cells Many H (NOT SEEN) /HPF Calcium Oxalate Crystal Few H (NOT SEEN) /HPF Urine Bacteria Few H (NOT SEEN) /HPF 12/27/17 Range/Units 16:00 WBC (5.0-10.0) 10^3/uL RBC (4.00-5.50) 10^6/uL Hgb (12.0-16.0) g/dL Hct (37.0-47.0) % MCV (82.0-94.0) fL MCH (27.0-32.0) pg MCHC (33.0-38.0) g/dL RDW Coeff of Nelson (11.0-15.0) % Plt Count (150-400) 10^3/uL Add Manual Diff Neutrophils % (Manual) (35-85) % Lymphocytes % (Manual) (21-55) % Monocytes % (Manual) (2-12) % D-Dimer, Quantitative 0.33 (0.00-0.50) Sodium (136-145) mEq/L Potassium (3.5-5.0) mEq/L Chloride (98-106) mEq/L Carbon Dioxide (21-32) mmol/L BUN (7-18) mg/dL Creatinine (0.6-1.0) mg/dL Est Cr Clr Drug Dosing mL/min Estimated GFR (MDRD) (>=60) mL/min Glucose (75-99) mg/dL Calcium (8.4-10.1) mg/dL Creatine Kinase (21-215) U/L Troponin I (0.00-0.06) ng/mL C-Reactive Protein (0.2-0.8) mg/dL Urine Color (YELLOW) Urine Appearance (CLEAR) Urine pH (4.5-8.0) Ur Specific Central (1.003-1.020) Urine Protein (NEGATIVE) mg/dL Urine Glucose (UA) (NEGATIVE) mg/dL Urine Ketones (NEGATIVE) mg/dL Urine Occult Blood (NEGATIVE) Urine Nitrite (NEGATIVE) Urine Bilirubin (NEGATIVE) Urine Urobilinogen (0.2-1.0) EU/dL Ur Leukocyte Esterase (NEGATIVE) Urine RBC (0-5) /HPF Urine WBC (0-5) /HPF Ur Epithelial Cells (NOT SEEN) /HPF Calcium Oxalate Crystal (NOT SEEN) /HPF Urine Bacteria (NOT SEEN) /HPF Meds: Medications Generic Name Dose Route Start Last Admin Trade Name Freq PRN Reason Stop Dose Admin Acetaminophen 650 mg 12/27/17 16:58 12/27/17 20:57 Tylenol PO 650 mg Q4H PRN Administration Pain (Mild 1-3)/fever Atorvastatin Calcium 20 mg 12/27/17 20:00 Lipitor PO BEDTIME [facility] Digoxin 125 mcg 12/28/17 08:00 Lanoxin PO DAILY [facility] Furosemide 80 mg 12/28/17 08:00 Lasix PO DAILY [facility] Gabapentin 100 mg 12/27/17 20:00 Neurontin PO TID [facility] Sodium Chloride 1,000 mls @ 75 mls/hr 12/27/17 16:58 12/27/17 18:30 Normal Saline IV 75 mls/hr ASDIRECTED [facility] Administration Insulin Aspart 45 unit 12/28/17 08:00 Novolog SUBCUT TIDMEALS [facility] Insulin Aspart 0 unit 12/27/17 18:59 12/27/17 19:00 Novolog SUBCUT Not Given TIDMEALS [facility] Protocol Insulin Detemir 125 unit 12/27/17 20:00 12/27/17 20:53 Levemir SUBCUT 125 units BID [facility] Administration Magnesium Chloride mg 12/27/17 20:00 Mag-64 PO BID [facility] Non-Formulary Medication 90 mg 12/28/17 08:00 Diltiazem Hcl [Diltiazem Er] PO DAILY [facility] Non-Formulary Medication 400 mg 12/28/17 08:00 Magnesium Oxide [Magnesium] PO DAILY [facility] Non-Formulary Medication 1 cap 12/28/17 08:00 Multivitamin [Multivitamins] PO DAILY [facility] Non-Formulary Medication 20 meq 12/28/17 08:00 Potassium Chloride [Klor-Con M20] PO DAILY [facility] Non-Formulary Medication 20 mg 12/28/17 08:00 Rivaroxaban [Xarelto] PO DAILY [facility] Ondansetron HCl 4 mg 12/27/17 16:58 Zofran IV Q6H PRN Nausea/Vomiting Pantoprazole Sodium 40 mg 12/28/17 08:00 Protonix PO DAILY RUBI Discontinued Medications Generic Name Dose Route Start Last Admin Trade Name Freq PRN Reason Stop Dose Admin Sodium Chloride 1,000 mls @ 999 mls/hr 12/27/17 16:05 12/27/17 16:10 Normal Saline IV 12/27/17 17:05 999 mls/hr .BOLUS ONE Administration Insulin Aspart 45 - 80 unit 12/27/17 20:00 Novolog SUBCUT BID RUBI Insulin Aspart 0 unit 12/28/17 08:00 Novolog SUBCUT TIDMEALS [facility] Protocol - Re-Assessments/Exams Free Text/Narrative Re-Assessment/Exam: Discussed labs, EKG, and CXR results with patient. Labs stable other than WBC of 21.4. D-dimer negative. Creatinine 1.5. Troponin normal. Chest xray is negative. I did contact Dr. Kearns (PCP from [facility]) to discuss patients PMH and recent workup. He notes that he recently started caring for her in November 2017 after being referred by Dr. Yo (cardiology). He reports the first time he saw her her WBC was elevated to 19.6. He reports he did do a rather extensive workup to determine cause of leukocytosis, without obvious cause. He reports he did blood cultures, a peripheral smear, knee xrays, and CXR. Patient was having some knee pain. He reports all imaging was normal and no source of infection was identified. He does report peripheral smear revealed absolute neutrophils. He reports that he followed her WBC count over the next few weeks and it did decrease to 13 on 12/22/2017. He reports he had not made any medication changes, other than decrease her lisinopril to 2.5 mg daily. Patient had a recent echo revealing 40% EF. Discussed case with Dr. Bone, who is agreeable with observation admission. Departure - Departure Time of Disposition: 17:15 Disposition: Refer to Observation Condition: Fair Clinical Impression: Hypotension, Leukocytosis, Type II diabetes mellitus, Atrial fibrillation with RVR - Discharge Information *PRESCRIPTION DRUG MONITORING PROGRAM REVIEWED*: Not Applicable *COPY OF PRESCRIPTION DRUG MONITORING REPORT IN PATIENT [place]: Not Applicable - Problem List & Annotations (1) Hypotension SNOMED Code(s): 15728722 Code(s): I95.9 - HYPOTENSION, UNSPECIFIED Status: Acute Current Visit: Yes Qualifiers: Hypotension type: hypotension due to drug Qualified Code(s): I95.2 - Hypotension due to drugs (2) Leukocytosis SNOMED Code(s): 415547465, 034285358 Code(s): D72.829 - ELEVATED WHITE BLOOD CELL COUNT, UNSPECIFIED Status: Acute Current Visit: Yes Qualifiers: Leukocytosis type: unspecified Qualified Code(s): D72.829 - Elevated white blood cell count, unspecified (3) Type II diabetes mellitus SNOMED Code(s): 07102652 Code(s): E11.9 - TYPE 2 DIABETES MELLITUS WITHOUT COMPLICATIONS Status: Acute Current Visit: Yes Qualifiers: Diabetes mellitus longterm insulin use: with longterm use Diabetes mellitus complication status: with kidney complications Diabetes mellitus complication detail: with chronic kidney disease Chronic kidney disease stage : unspecified stage Qualified Code(s): E11.22 - Type 2 diabetes mellitus with diabetic chronic kidney disease; Z79.4 - exterminator termite (current) use of insulin (4) Atrial fibrillation with RVR SNOMED Code(s): 732850194073016 Code(s): I48.91 - UNSPECIFIED ATRIAL FIBRILLATION Status: Chronic Priority: High Current Visit: No (5) Diarrhea SNOMED Code(s): 65798073 Code(s): R19.7 - DIARRHEA, UNSPECIFIED Status: Acute Current Visit: Yes - Problem List Review Problem List Initiated/Reviewed/Updated: Yes - My Orders Last 24 Hours: My Active Orders 12/27/17 16:27 Chest 2V [CR] Stat - Assessment/Plan Admission H&P: Please use this note as an admission H&P Last 24 Hours: My Active Orders 12/27/17 16:27 Chest 2V [CR] Stat Plan: Admit to Dr. Bone observation status. Did discuss with Dr. Bone. We will hold Coreg for BP < 100 systollic. Close monitoring of BP overnight. NS at 75 ml/hr. Will get stool studies given diarrhea and recent antibiotic use for respiratory issues. Daily labs.
[2017-12-27 16:00] LABS: CHLORIDE,CL 100 mEq/L (98-106); SODIUM,NA 139 mEq/L (136-145)
[2017-12-27] MEDS ORDERED: Sodium Chloride 0.9% 1,000 ML IV ONE (16:05)
[2017-12-27] MEDS ORDERED: Ondansetron 4 MG/2 ML SDV IV PRN (16:58)
[2017-12-27] MEDS ORDERED: Acetaminophen 325 MG Tab PO PRN (16:58)
[2017-12-27] MEDS: Sodium Chloride 0.9% 1,000 ML IV SCH (18:30)
[2017-12-27] MEDS: Insulin Aspart 100 Units/ML 3 ML Pen SUBCUT SCH (19:00)
[2017-12-27] MEDS ORDERED: Insulin Aspart 100 Units/ML 3 ML Pen SUBCUT SCH (20:00)
[2017-12-27] MEDS: Insulin Detemir 100 Units/ML 3 ML Pen SUBCUT SCH (20:53)
[2017-12-28] MEDS: Sodium Chloride 0.9% 1,000 ML IV SCH (07:55)
[2017-12-28] MEDS ORDERED: Non-Formulary Medication 1 Each (Multivitamin [Multivitamins] 1 CAP) PO SCH (08:00)
[2017-12-28] MEDS ORDERED: Insulin Aspart 100 Units/ML 3 ML Pen SUBCUT SCH (08:00)
--- NOTE | 2017-12-28 08:58 | PCM.PN ---
- General Info Date of Service: 12/28/17 Admission Dx/Problem (Free Text): Hypotension Functional Status: Reports: Pain Controlled, Tolerating Diet. Denies: Ambulating - Review of Systems General: Denies: Fever, Weakness, Fatigue HEENT: Reports: No Symptoms Pulmonary: Denies: Shortness of Breath, Cough Cardiovascular: Denies: Chest Pain, Edema, Lightheadedness (Is improved today) Gastrointestinal: Reports: Abdominal Pain (crampy in the RUQ), Diarrhea. Denies : Nausea, Vomiting Genitourinary: Reports: No Symptoms Musculoskeletal: Reports: No Symptoms Skin: Reports: No Symptoms Neurological: Reports: No Symptoms - Patient Data Vitals - Most Recent: Last Vital Signs Temp 98.3 F 12/28/17 07:15 Pulse 119 H 12/28/17 07:15 Resp 16 12/28/17 07:15 BP 110/53 L 12/28/17 07:15 Pulse Ox 95 12/28/17 07:15 Weight - Most Recent: 306 lb 14.4 oz I&O - Last 24 Hours: Intake & Output 12/27/17 12/28/17 12/28/17 22:59 06:59 14:59 Intake Total 1000 Balance 1000 Lab Results Last 24 Hours: Laboratory Results - last 24 hr 12/27/17 12/27/17 12/27/17 Range/Units 15:31 15:31 15:42 WBC 21.4 H* (5.0-10.0) 10^3/uL RBC 3.94 L (4.00-5.50) 10^6/uL Hgb 12.3 (12.0-16.0) g/dL Hct 37.2 (37.0-47.0) % MCV 94.4 H (82.0-94.0) fL MCH 31.2 (27.0-32.0) pg MCHC 33.1 (33.0-38.0) g/dL RDW Coeff of Nelson 14.4 (11.0-15.0) % Plt Count 366 (150-400) 10^3/uL Neut % (Auto) (35-85) % Lymph % (Auto) (10-55) % [place] % (Auto) (0-16) % Eos % (Auto) (0-5) % Baso % (Auto) (0-3) % Neut # (Auto) (1.80-7.00) 10^3/uL Lymph # (Auto) (1.00-4.80) 10^3/uL [place] # (Auto) (0.00-0.80) 10^3/uL Eos # (Auto) (0.00-0.45) 10^3/uL Baso # (Auto) 10^3/uL Add Manual Diff Yes Neutrophils % (Manual) 84 (35-85) % Lymphocytes % (Manual) 11 L (21-55) % Monocytes % (Manual) 5 (2-12) % D-Dimer, Quantitative (0.00-0.50) Sodium 139 (136-145) mEq/L Potassium 4.5 (3.5-5.0) mEq/L Chloride 100 (98-106) mEq/L Carbon Dioxide 28 (21-32) mmol/L BUN 25 H (7-18) mg/dL Creatinine 1.5 H (0.6-1.0) mg/dL Est Cr Clr Drug Dosing 39.23 mL/min Estimated GFR (MDRD) 35 L (>=60) mL/min Glucose 155 H (75-99) mg/dL POC Glucose (75-105) mg/dl Calcium 9.6 (8.4-10.1) mg/dL Creatine Kinase 60 (21-215) U/L Troponin I < 0.017 (0.00-0.06) ng/mL C-Reactive Protein 1.4 H (0.2-0.8) mg/dL Urine Color Yellow (YELLOW) Urine Appearance Clear (CLEAR) Urine pH 5.0 (4.5-8.0) Ur Specific [place] 1.020 (1.003-1.020) Urine Protein 30 H (NEGATIVE) mg/dL Urine Glucose (UA) Negative (NEGATIVE) mg/dL Urine Ketones Trace H (NEGATIVE) mg/dL Urine Occult Blood Negative (NEGATIVE) Urine Nitrite Negative (NEGATIVE) Urine Bilirubin Negative (NEGATIVE) Urine Urobilinogen 0.2 (0.2-1.0) EU/dL Ur Leukocyte Esterase Trace H (NEGATIVE) Urine RBC Not seen (0-5) /HPF Urine WBC Not seen (0-5) /HPF Ur Epithelial Cells Many H (NOT SEEN) /HPF Calcium Oxalate Crystal Few H (NOT SEEN) /HPF Urine Bacteria Few H (NOT SEEN) /HPF 12/27/17 12/27/17 12/27/17 Range/Units 16:00 17:29 20:36 WBC (5.0-10.0) 10^3/uL RBC (4.00-5.50) 10^6/uL Hgb (12.0-16.0) g/dL Hct (37.0-47.0) % MCV (82.0-94.0) fL MCH (27.0-32.0) pg MCHC (33.0-38.0) g/dL RDW Coeff of Nelson (11.0-15.0) % Plt Count (150-400) 10^3/uL Neut % (Auto) (35-85) % Lymph % (Auto) (10-55) % [place] % (Auto) (0-16) % Eos % (Auto) (0-5) % Baso % (Auto) (0-3) % Neut # (Auto) (1.80-7.00) 10^3/uL Lymph # (Auto) (1.00-4.80) 10^3/uL [place] # (Auto) (0.00-0.80) 10^3/uL Eos # (Auto) (0.00-0.45) 10^3/uL Baso # (Auto) 10^3/uL Add Manual Diff Neutrophils % (Manual) (35-85) % Lymphocytes % (Manual) (21-55) % Monocytes % (Manual) (2-12) % D-Dimer, Quantitative 0.33 (0.00-0.50) Sodium (136-145) mEq/L Potassium (3.5-5.0) mEq/L Chloride (98-106) mEq/L Carbon Dioxide (21-32) mmol/L BUN (7-18) mg/dL Creatinine (0.6-1.0) mg/dL Est Cr Clr Drug Dosing mL/min Estimated GFR (MDRD) (>=60) mL/min Glucose (75-99) mg/dL POC Glucose 175 H 179 H (75-105) mg/dl Calcium (8.4-10.1) mg/dL Creatine Kinase (21-215) U/L Troponin I (0.00-0.06) ng/mL C-Reactive Protein (0.2-0.8) mg/dL Urine Color (YELLOW) Urine Appearance (CLEAR) Urine pH (4.5-8.0) Ur Specific [place] (1.003-1.020) Urine Protein (NEGATIVE) mg/dL Urine Glucose (UA) (NEGATIVE) mg/dL Urine Ketones (NEGATIVE) mg/dL Urine Occult Blood (NEGATIVE) Urine Nitrite (NEGATIVE) Urine Bilirubin (NEGATIVE) Urine Urobilinogen (0.2-1.0) EU/dL Ur Leukocyte Esterase (NEGATIVE) Urine RBC (0-5) /HPF Urine WBC (0-5) /HPF Ur Epithelial Cells (NOT SEEN) /HPF Calcium Oxalate Crystal (NOT SEEN) /HPF Urine Bacteria (NOT SEEN) /HPF 12/28/17 12/28/17 12/28/17 Range/Units 07:00 07:00 07:42 WBC 13.6 H (5.0-10.0) 10^3/uL RBC 3.45 L (4.00-5.50) 10^6/uL Hgb 10.6 L (12.0-16.0) g/dL Hct 33.3 L (37.0-47.0) % MCV 96.5 H (82.0-94.0) fL MCH 30.7 (27.0-32.0) pg MCHC 31.8 L (33.0-38.0) g/dL RDW Coeff of Nelson 14.2 (11.0-15.0) % Plt Count 299 (150-400) 10^3/uL Neut % (Auto) 62.4 (35-85) % Lymph % (Auto) 24.5 (10-55) % [place] % (Auto) 8.5 (0-16) % Eos % (Auto) 4.1 (0-5) % Baso % (Auto) 0.5 (0-3) % Neut # (Auto) 8.48 H (1.80-7.00) 10^3/uL Lymph # (Auto) 3.33 (1.00-4.80) 10^3/uL [place] # (Auto) 1.15 H (0.00-0.80) 10^3/uL Eos # (Auto) 0.55 H (0.00-0.45) 10^3/uL Baso # (Auto) 0.07 10^3/uL Add Manual Diff Neutrophils % (Manual) (35-85) % Lymphocytes % (Manual) (21-55) % Monocytes % (Manual) (2-12) % D-Dimer, Quantitative (0.00-0.50) Sodium 137 (136-145) mEq/L Potassium 4.2 (3.5-5.0) mEq/L Chloride 102 (98-106) mEq/L Carbon Dioxide 27 (21-32) mmol/L BUN 21 H (7-18) mg/dL Creatinine 1.2 H (0.6-1.0) mg/dL Est Cr Clr Drug Dosing 49.03 mL/min Estimated GFR (MDRD) 46 L (>=60) mL/min Glucose 185 H (75-99) mg/dL POC Glucose 172 H (75-105) mg/dl Calcium 8.6 (8.4-10.1) mg/dL Creatine Kinase (21-215) U/L Troponin I (0.00-0.06) ng/mL C-Reactive Protein 1.9 H (0.2-0.8) mg/dL Urine Color (YELLOW) Urine Appearance (CLEAR) Urine pH (4.5-8.0) Ur Specific [place] (1.003-1.020) Urine Protein (NEGATIVE) mg/dL Urine Glucose (UA) (NEGATIVE) mg/dL Urine Ketones (NEGATIVE) mg/dL Urine Occult Blood (NEGATIVE) Urine Nitrite (NEGATIVE) Urine Bilirubin (NEGATIVE) Urine Urobilinogen (0.2-1.0) EU/dL Ur Leukocyte Esterase (NEGATIVE) Urine RBC (0-5) /HPF Urine WBC (0-5) /HPF Ur Epithelial Cells (NOT SEEN) /HPF Calcium Oxalate Crystal (NOT SEEN) /HPF Urine Bacteria (NOT SEEN) /HPF Med Orders - Current: Current Medications Acetaminophen (Tylenol) 650 mg PO Q4H PRN PRN Reason: Pain (Mild 1-3)/fever Last Admin: 12/27/17 20:57 Dose: 650 mg Atorvastatin Calcium (Lipitor) 20 mg PO BEDTIME [facility] Carvedilol (Coreg) 6.25 mg PO BIDMEALS [facility] Digoxin (Lanoxin) 125 mcg PO DAILY [facility] Furosemide (Lasix) 80 mg PO DAILY [facility] Gabapentin (Neurontin) 100 mg PO TID [facility] Insulin Aspart (Novolog) 45 unit SUBCUT TIDMEALS [facility] Insulin Aspart (Novolog) 0 unit SUBCUT TIDMEALS [facility]; Protocol Last Admin: 12/27/17 19:00 Dose: Not Given Insulin Detemir (Levemir) 125 unit SUBCUT BID [facility] Last Admin: 12/27/17 20:53 Dose: 125 units Lisinopril (Prinivil) 2.5 mg PO DAILY [facility] Magnesium Chloride (Mag-64) mg PO BID [facility] Non-Formulary Medication (Diltiazem Hcl [Diltiazem Er]) 90 mg PO DAILY [facility] Non-Formulary Medication (Magnesium Oxide [Magnesium]) 400 mg PO DAILY [facility] Non-Formulary Medication (Multivitamin [Multivitamins]) 1 cap PO DAILY [facility] Non-Formulary Medication (Potassium Chloride [Klor-Con M20]) 20 meq PO DAILY [facility] Non-Formulary Medication (Rivaroxaban [Xarelto]) 20 mg PO DAILY [facility] Ondansetron HCl (Zofran) 4 mg IV Q6H PRN PRN Reason: Nausea/Vomiting Pantoprazole Sodium (Protonix) 40 mg PO DAILY [facility] Discontinued Medications Sodium Chloride (Normal Saline) 1,000 mls @ 999 mls/hr IV .BOLUS ONE Stop: 12/27/17 17:05 Last Admin: 12/27/17 16:10 Dose: 999 mls/hr Sodium Chloride (Normal Saline) 1,000 mls @ 75 mls/hr IV ASDIRECTED [facility] Last Admin: 12/28/17 07:55 Dose: 75 mls/hr Insulin Aspart (Novolog) 45 - 80 unit SUBCUT BID [facility] Insulin Aspart (Novolog) 0 unit SUBCUT TIDMEALS [facility]; Protocol - Exam General: Alert, Oriented HEENT: Mucous Membr. Moist/[place] Neck: Supple Lungs: Clear to Auscultation, Normal Respiratory Effort Cardiovascular: Irregular Rhythm GI/Abdominal Exam: Normal Bowel Sounds, Soft, Non-Tender Extremities: Normal Inspection, Pedal Edema (2+ bilateral edema to ankles/feet) Skin: Warm, Dry Neurological: No New Focal Deficit - Problem List & Annotations (1) Hypotension SNOMED Code(s): 06239303 Code(s): I95.9 - HYPOTENSION, UNSPECIFIED Status: Acute Priority: High Current Visit: Yes Qualifiers: Hypotension type: hypotension due to drug Qualified Code(s): I95.2 - Hypotension due to drugs (2) Diarrhea SNOMED Code(s): 25448527 Code(s): R19.7 - DIARRHEA, UNSPECIFIED Status: Acute Priority: High Current Visit: Yes (3) Leukocytosis SNOMED Code(s): 482529487, 972817015 Code(s): D72.829 - ELEVATED WHITE BLOOD CELL COUNT, UNSPECIFIED Status: Acute Priority: High Current Visit: Yes Qualifiers: Leukocytosis type: unspecified Qualified Code(s): D72.829 - Elevated white blood cell count, unspecified (4) Type II diabetes mellitus SNOMED Code(s): 97830464 Code(s): E11.9 - TYPE 2 DIABETES MELLITUS WITHOUT COMPLICATIONS Status: Acute Priority: High Current Visit: Yes Qualifiers: 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 Diabetes mellitus complication status: with kidney complications Diabetes mellitus complication detail: with chronic kidney disease Chronic kidney disease stage : unspecified stage Qualified Code(s): E11.22 - Type 2 diabetes mellitus with diabetic chronic kidney disease; Z79.4 - jail (current) use of insulin (5) Atrial fibrillation with RVR SNOMED Code(s): 818752289935289 Code(s): I48.91 - UNSPECIFIED ATRIAL FIBRILLATION Status: Chronic Priority: High Current Visit: Yes - Problem List Review Problem List Initiated/Reviewed/Updated: Yes - My Orders Last 24 Hours: My Active Orders 12/28/17 08:45 Lisinopril [Prinivil] 2.5 mg PO DAILY 12/28/17 17:30 Carvedilol [Coreg] 6.25 mg PO BIDMEALS - Assessment Assessment:: Hypotension Leukocytosis Atrial Fib - Plan Plan:: Patient feeling better today, denies feeling lightheaded. Has been having some RUQ crampy pain, loose stools. Relates was having 5-6 loose stools per day but only has had one stool here. Stool samples sent down for testing. Heart rate has ranged 90-110, atrial fib. Coreg and Lisinopril has been on hold. Blood pressures are much improved, 110/50 range. Labs are stable this am, WBC 13.6 but has chronic leukocytosis that is being followed by Dr. Jaramillo in [place], her PCP. CRP 1.9. No fevers. Will restart her Coreg at half dose at 6.25 mg BID. Restart her Lisinopril. Monitor blood pressure and heart rate today to see if she tolerates restarting these meds. Has been on Metformin for many years. Initially did have diarrhea when starting but not now for years. Await stool studies. Stop IV fluids. Encourage ambulation. Possible discharge home tomorrow.
[2017-12-28] MEDS: Insulin Detemir 100 Units/ML 3 ML Pen SUBCUT SCH ×2 (09:05→20:06)
[2017-12-28] MEDS: Insulin Aspart 100 Units/ML 3 ML Pen SUBCUT SCH ×6 (09:09→17:47)
[2017-12-28] MEDS: Gabapentin 100 MG Cap**OWN MED PO SCH ×4 (10:11→20:05)
[2017-12-28] MEDS: MAGNESIUM CHLORIDE 64 MG PO SCH ×3 (10:11→20:04)
[2017-12-28] MEDS: MAGNESIUM 400 MG PO SCH (10:12)
[2017-12-28] MEDS: DILTIAZEM 90 MG PO SCH (10:13)
[2017-12-28] MEDS: DIGOXIN 125 MCG PO SCH (10:13)
[2017-12-28] MEDS: Furosemide 40 MG Tab**OWN MED PO SCH (10:14)
[2017-12-28] MEDS: POTASSIUM CHLORIDE 20 MEQ PO SCH (10:14)
[2017-12-28] MEDS: Pantoprazole 40 MG Tab.CR**OWN MED PO SCH (10:15)
[2017-12-28] MEDS: [UNRECOGNIZED DRUG - OTHER] PO SCH (10:15)
[2017-12-28] MEDS: Lisinopril 5 MG Tab PO SCH (10:20)
[2017-12-28] MEDS: Carvedilol 6.25 MG Tab PO SCH ×2 (10:21→17:50)
[2017-12-29] MEDS ORDERED: METFORMIN 1000 MG PO SCH (08:00)
[2017-12-29] MEDS: DILTIAZEM 90 MG PO SCH (09:03)
[2017-12-29] MEDS: DIGOXIN 125 MCG PO SCH (09:03)
[2017-12-29] MEDS: Insulin Detemir 100 Units/ML 3 ML Pen SUBCUT SCH (09:04)
[2017-12-29] MEDS: Furosemide 40 MG Tab**OWN MED PO SCH (09:04)
[2017-12-29] MEDS: MAGNESIUM CHLORIDE 64 MG PO SCH (09:06)
[2017-12-29] MEDS: Insulin Aspart 100 Units/ML 3 ML Pen SUBCUT SCH ×2 (09:07→09:08)
[2017-12-29] MEDS: Gabapentin 100 MG Cap**OWN MED PO SCH (09:07)
[2017-12-29] MEDS: Lisinopril 5 MG Tab PO SCH (09:09)
[2017-12-29] MEDS: [UNRECOGNIZED DRUG - OTHER] PO SCH (09:10)
[2017-12-29] MEDS: Pantoprazole 40 MG Tab.CR**OWN MED PO SCH (09:10)
[2017-12-29] MEDS: Carvedilol 6.25 MG Tab PO SCH (09:11)
[2017-12-29] MEDS: MAGNESIUM 400 MG PO SCH (11:37)
[2017-12-29] MEDS: POTASSIUM CHLORIDE 20 MEQ PO SCH (11:38)
--- NOTE | 2017-12-31 20:41 | PCM.DCSUM1 ---
Discharge Summary - Hospital Course Free Text/Narrative:: Patient presented per [facility] with dizziness, weakness and low blood pressure. Patient reports that she had been experiencing diarrhea stools over the last 2 days, up to 5 per day. Blood pressure has been low, has been seeing Dr. Jaramillo in [facility] due to multiple chronic medical concerns. He recently adjusted her Lisinopril from 5 mg to 2.5 mg given her blood pressure would drop to 80/50. On day of admit, patient was out to eat with friends, started experiencing abdominal cramping, nausea and had a diarrhea stool. Tried to rest at home but continued to feel weak and dizzy. Took her blood sugar which was stable, blood pressure 70/50. WBC has chronically been running high but has been stable, actually improved. Admitted and started on IV fluids. Lisinopril and Coreg held on admission. Diagnosis: Stroke: No - Discharge Data Discharge Date: 12/31/17 Discharge Disposition: Home, Self-Care 01 Condition: Good - Discharge Diagnosis/Problem(s) (1) Hypotension SNOMED Code(s): 27302052 ICD Code: I95.9 - HYPOTENSION, UNSPECIFIED Status: Acute Priority: High Qualifiers: Hypotension type: hypotension due to drug Qualified Code(s): I95.2 - Hypotension due to drugs (2) Diarrhea SNOMED Code(s): 15516468 ICD Code: R19.7 - DIARRHEA, UNSPECIFIED Status: Acute Priority: High (3) Leukocytosis SNOMED Code(s): 730504673, 816483712 ICD Code: D72.829 - ELEVATED WHITE BLOOD CELL COUNT, UNSPECIFIED Status: Acute Priority: High Qualifiers: Leukocytosis type: unspecified Qualified Code(s): D72.829 - Elevated white blood cell count, unspecified (4) Type II diabetes mellitus SNOMED Code(s): 02821671 ICD Code: E11.9 - TYPE 2 DIABETES MELLITUS WITHOUT COMPLICATIONS Status: Acute Priority: High Qualifiers: 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 Lisinopril restarted at 2.5 mg, Coreg restarted at half dose at 6.25 mg BID to control rate with her atrial fib. Blood sugars have been stable. She does feel better , stronger. Continues to have loose stools, less often. Stool studies were done, are negative. She is up and ambulatory without dizziness. Continues in atrial fib, heart rate around 100. - Patient Instructions Diet: Diabetic Diet Activity: As Tolerated - Discharge Plan *PRESCRIPTION DRUG MONITORING PROGRAM REVIEWED*: Not Applicable *COPY OF PRESCRIPTION DRUG MONITORING REPORT IN PATIENT [place]: Not Applicable Prescriptions/Med Rec: Carvedilol [Coreg] 6.25 mg PO BIDMEALS #60 tablet Home Medications: Home Meds Ascorbic Acid [Vitamin C] 1 cap PO DAILY 08/07/17 [History] Cholecalciferol (Vitamin D3) [Vitamin D] 2,000 units PO DAILY 08/07/17 [History] Furosemide 80 mg PO DAILY 08/07/17 [History] Insulin Aspart [Novolog Flexpen] 45 - 80 units SUBCUT BID 08/07/17 [History] Insulin Detemir [Levemir Flextouch] 125 units SUBCUT BID 08/07/17 [History] Multivitamin [Multivitamins] 1 cap PO DAILY 08/07/17 [History] Vitamin B Complex [B Complex] 1 cap PO DAILY 08/07/17 [History] Vitamin E 1,000 units PO DAILY 08/07/17 [History] atorvaSTATin [Lipitor] 20 mg PO DAILY 08/07/17 [History] metFORMIN [Glucophage] 1,000 mg PO DAILY 08/07/17 [History] Rivaroxaban [Xarelto] 20 mg PO DAILY #30 tablet 08/10/17 [Rx] Digoxin 0.125 mg PO DAILY 12/27/17 [History] Diltiazem HCl [Diltiazem ER] 90 mg PO DAILY 12/27/17 [History] Gabapentin [Neurontin] 100 mg PO TID 12/27/17 [History] Lisinopril 2.5 mg PO DAILY 12/27/17 [History] Magnesium Chloride [Mag-64] 2 tab PO BID 12/27/17 [History] Magnesium Oxide [Magnesium] 400 mg PO DAILY 12/27/17 [History] Pantoprazole Sodium 40 mg PO DAILY 12/27/17 [History] Potassium Chloride [Klor-Con M20] 20 meq PO DAILY 12/27/17 [History] Carvedilol [Coreg] 6.25 mg PO BIDMEALS #60 tablet 12/29/17 [Rx] Forms: ED Department Discharge Referrals: PCP,None [Primary Care Provider] - (Follow up with primary care provider in [place] on Monday or Monday) - Discharge Summary/Plan Comment DC Time >30 min.: No Discharge Summary/Plan Comment: Discharge home Continue Lisinopril at 2.5 mg daily Coreg 6.25 mg BID Follow up with Dr. Chandler in [place] next week. - General Info Date of Service: 12/29/17 Admission Dx/Problem (Free Text: Hypotension Functional Status: Reports: Pain Controlled, Tolerating Diet, Ambulating - Review of Systems General: Reports: Fatigue. Denies: Fever, Weakness, Malaise HEENT: Reports: No Symptoms Pulmonary: Denies: Shortness of Breath, Cough Cardiovascular: Reports: Edema. Denies: Chest Pain, Lightheadedness Gastrointestinal: Reports: Diarrhea. Denies: Abdominal Pain, Nausea, Vomiting Genitourinary: Reports: No Symptoms Musculoskeletal: Reports: No Symptoms Skin: Reports: No Symptoms Neurological: Reports: No Symptoms - Patient Data Vitals - Most Recent: Last Vital Signs Temp 98.4 F 12/29/17 08:00 Pulse 95 12/29/17 08:00 Resp 20 12/29/17 08:00 BP 119/68 12/29/17 08:00 Pulse Ox 97 12/29/17 08:00 Weight - Most Recent: 306 lb 14.4 oz [place] Results - Last 24 hrs: Microbiology 12/28/17 06:39 Stool Aerobic Culture - Final Stool / Feces Med Orders - Current: Current Medications Discontinued Medications Acetaminophen (Tylenol) 650 mg PO Q4H PRN PRN Reason: Pain (Mild 1-3)/fever Last Admin: 12/27/17 20:57 Dose: 650 mg Atorvastatin Calcium (Lipitor) 20 mg PO BEDTIME [facility] Carvedilol (Coreg) 6.25 mg PO BIDMEALS [facility] Last Admin: 12/29/17 09:11 Dose: 6.25 mg Digoxin (Lanoxin) 125 mcg PO DAILY [facility] Last Admin: 12/29/17 09:03 Dose: 125 mcg Furosemide (Lasix) 80 mg PO DAILY [facility] Last Admin: 12/29/17 09:04 Dose: 80 mg Gabapentin (Neurontin) 100 mg PO TID [facility] Last Admin: 12/29/17 09:07 Dose: 100 mg Sodium Chloride (Normal Saline) 1,000 mls @ 999 mls/hr IV .BOLUS ONE Stop: 12/27/17 17:05 Last Admin: 12/27/17 16:10 Dose: 999 mls/hr Sodium Chloride (Normal Saline) 1,000 mls @ 75 mls/hr IV ASDIRECTED [facility] Last Admin: 12/28/17 07:55 Dose: 75 mls/hr Insulin Aspart (Novolog) 45 - 80 unit SUBCUT BID [facility] Insulin Aspart (Novolog) 0 unit SUBCUT TIDMEALS [facility]; Protocol Insulin Aspart (Novolog) 45 unit SUBCUT TIDMEALS [facility] Last Admin: 12/29/17 09:07 Dose: 45 units Insulin Aspart (Novolog) 0 unit SUBCUT TIDMEALS [facility]; Protocol Last Admin: 12/29/17 09:08 Dose: 2 units Insulin Detemir (Levemir) 125 unit SUBCUT BID [facility] Last Admin: 12/29/17 09:04 Dose: 125 units Lisinopril (Prinivil) 2.5 mg PO DAILY [facility] Last Admin: 12/29/17 09:09 Dose: 2.5 mg Magnesium Chloride (Mag-64) 64 mg PO BID [facility] Last Admin: 12/29/17 09:06 Dose: 64 mg Diltiazem Er 90 Mg (Ptom) 90 mg PO DAILY [facility] Last Admin: 12/29/17 09:03 Dose: 90 mg Magnesium 400 Mg (Own Med) 400 mg PO DAILY [facility] Last Admin: 12/29/17 11:37 Dose: Not Given Non-Formulary Medication (Multivitamin [Multivitamins]) 1 cap PO DAILY [facility] Last Admin: 12/28/17 16:29 Dose: Not Given Potassium Chloride (20 MeqOwn Med) 20 meq PO DAILY [facility] Last Admin: 12/29/17 11:38 Dose: Not Given Rivaroxaban Xarelto (20 MgOwn Med) 20 mg PO DAILY [facility] Last Admin: 12/29/17 09:10 Dose: 20 mg Metformin 1,000 Mg 1,000 mg PO DAILY [facility] Last Admin: 12/29/17 09:07 Dose: 1,000 mg Ondansetron HCl (Zofran) 4 mg IV Q6H PRN PRN Reason: Nausea/Vomiting Pantoprazole Sodium (Protonix) 40 mg PO DAILY [facility] Last Admin: 12/29/17 09:10 Dose: 40 mg - Exam General: Reports: Alert, Oriented HEENT: Reports: Mucous Membr. Moist/[place] Neck: Reports: Supple Lungs: Reports: Decreased Breath Sounds Cardiovascular: Reports: Irregular Rhythm GI/Abdominal Exam: Normal Bowel Sounds, Soft, Non-Tender Extremities: Normal Inspection, Pedal Edema Skin: Reports: Warm, Dry Neurological: Reports: No New Focal Deficit
== END 2017-12-29 11:00 | disposition home or self-care (01) ==
LOC: CC.ED 15:03 → CC.MS 16:38
PROVIDERS: ADMIT Nurse Practitioner Family; ATTEND Family Medicine
DX: I95.9 Hypotension, unspecified (principal); R19.7 Diarrhea, unspecified; D72.829 Elevated white blood cell count, unspecified; I13.0 Hypertensive heart and chronic kidney disease with heart failure and stage 1 through stage 4 chronic kidney disease, or unspecified chronic kidney disease; N18.9 Chronic kidney disease, unspecified; E11.22 Type 2 diabetes mellitus with diabetic chronic kidney disease; I50.9 Heart failure, unspecified; E78.5 Hyperlipidemia, unspecified; I48.91 Unspecified atrial fibrillation; Z87.891 Personal history of nicotine dependence; Z79.01 Long term (current) use of anticoagulants; Z79.4 Long term (current) use of insulin; Z79.899 Other long term (current) drug therapy
CPT/HCPCS: 36415; 71046; 80048; 81001; 82550; 82962; 84484; 85025; 85379; 86140; 87045; 87046; 87493; 89055; 93005; 96360; 96361; 99285; A9270-GY; G0378; J1815-GY; J7030

== ENCOUNTER 2020-11-09 20:38 | Emergency (ER) | payer MEDICARE, MEDICAID ==
--- NOTE | 2020-11-09 21:05 | EDM.PDOC ---
ED HPI GENERAL MEDICAL PROBLEM - General Chief Complaint: Lower Extremity Injury/Pain Stated Complaint: knee pain Time Seen by Provider: 11/09/20 20:44 Source of Information: Reports: Patient History Limitations: Reports: No Limitations - History of Present Illness INITIAL COMMENTS - FREE TEXT/NARRATIVE: Vicky is a 65 yo female who presents to the ED via EMS with c/o right knee pain and left foot pain following fall in her home. She reports for the past 6 months she has been more shaky and weak with ambulation. Has been using her walker more due to concerns for fall. She reports she did have a fall 3 weeks ago, in which EMS came and helped her up. She was not evaluated at that time. Has been using a walking shoe to left foot since that time, but did not have it on this evening at time of her fall. She feels this contributed to her fall. She reports her knees gave out and she fell to the floor from ground level. Reports landing on her right knee and twisting her left foot. Was unable to get up. Someone had stopped at her house shortly after she fell and called for help getting her up. She is morbidly obese. She denies any dizziness, lightheadedness, syncope or c hest pain prior to fall. Just reports her knees have been giving out on her more frequently. She is able to move her right knee and left foot without significant pain. Does have swelling noted to right knee, as well as left foot. Reports chronic neuropathy to BLE as well. She denies hitting her head. Denies any other injuries. She is on Xarelto. Onset: Today, Sudden Onset Date: 11/10/20 Onset Time: 19:30 Duration: Constant Location: Reports: Lower Extremity, Left, Lower Extremity, Right Associated Symptoms: Reports: No Other Symptoms Right Knee Pain Score (Numeric/FACES): 2 - Related Data Allergies Allergy/AdvReac Type Severity Reaction Status Date / Time No Known Allergies Allergy Verified 11/09/20 20:41 Home Meds: Home Meds Ascorbic Acid [Vitamin C] 1 cap PO DAILY 08/07/17 [History] Cholecalciferol (Vitamin D3) [Vitamin D] 2,000 units PO DAILY 08/07/17 [History] Furosemide 80 mg PO DAILY 08/07/17 [History] Insulin Aspart [Novolog Flexpen] 20 - 40 units SUBCUT ASDIRECTED 08/07/17 [History] Vitamin E (Dl,Tocopheryl Acet) [Vitamin E] 1,000 units PO DAILY 08/07/17 [History] atorvaSTATin [Lipitor] 20 mg PO BEDTIME 08/07/17 [History] metFORMIN [Glucophage] 1,000 mg PO BID 08/07/17 [History] Rivaroxaban [Xarelto] 20 mg PO DAILY #30 tablet 08/10/17 [Rx] Gabapentin [Neurontin] 100 mg PO TID 12/27/17 [History] Lisinopril 10 mg PO DAILY 12/27/17 [History] Magnesium Oxide [Magnesium] 400 mg PO DAILY 12/27/17 [History] Pantoprazole Sodium 40 mg PO DAILY 12/27/17 [History] Potassium Chloride [Klor-Con M20] 20 meq PO DAILY 12/27/17 [History] Amiodarone [Cordarone] 200 mg PO BID 11/09/20 [History] Betamethasone Valerate [Valisone 0.1% Crm] 1 applic TOP ASDIRECTED 11/09/20 [History] Budesonide/Formoterol Fumarate [Symbicort 80-4.5 MCG] 2 puff INH BID 11/09/20 [History] Insulin Glargine,Hum.Rec.Anlog [Toujeo Solostar] 100 units SQ BID 11/09/20 [History] Metoprolol Tartrate [Lopressor] 25 mg PO BID 11/09/20 [History] Past Medical History HEENT History: Reports: Impaired Vision Cardiovascular History: Reports: High Cholesterol, Hypertension Endocrine/Metabolic History: Reports: Diabetes, Type II - Infectious Disease History Infectious Disease History: Reports: RSV - Past Surgical History HEENT Surgical History: Reports: Cataract Surgery Musculoskeletal Surgical History: Reports: Shoulder Surgery, Other (See Below) Other Musculoskeletal Surgeries/Procedures:: knee surgery Social & Family History - Family History Family Medical History: No Pertinent Family History - Tobacco Use Tobacco Use Status *Q: Former Tobacco User Used Tobacco, but Quit: Yes Month/Year Tobacco Last Used: 2008 - Caffeine Use Caffeine Use: Reports: Coffee - Living Situation & Occupation Living situation: Reports: Single, Alone Occupation: Disabled Review of Systems - Review of Systems Review Of Systems: Comprehensive ROS is negative, except as noted in HPI. ED EXAM, GENERAL - Physical Exam Exam: See Below Exam Limited By: No Limitations General Appearance: Alert, WD/WN, No Apparent Distress Eye Exam: Bilateral Eye: EOMI, Normal Fundi, Normal Inspection, PERRL Ears: Normal External Exam, Normal Canal, Hearing Grossly Normal, Normal TMs Nose: Normal Inspection, Normal Mucosa, No Blood Throat/Mouth: Normal Inspection, Normal Lips, Normal Teeth, Normal Gums, Normal Oropharynx, Normal Voice, No Airway Compromise Head: Atraumatic, Normocephalic Neck: Normal Inspection, Supple, Non-Tender, Full Range of Motion Respiratory/Chest: No Respiratory Distress, Lungs Clear, Normal Breath Sounds, No Accessory Muscle Use, Chest Non-Tender Cardiovascular: Normal Peripheral Pulses, Bradycardia Peripheral Pulses: 2+: Radial (L), Radial (R), Dorsalis Pedis (L), Dorsalis Pedis (R) GI/Abdominal: Normal Bowel Sounds, Soft, Non-Tender, No Organomegaly, No Distention, No Abnormal Bruit, No Mass Back Exam: Normal Inspection, Full Range of Motion, NT Extremities: Normal Capillary Refill, Pedal Edema (1+), Leg Pain, Other (able to flex and extend right knee without difficulty, tenderness noted to medial and lateral aspect of right knee, mild ecchymosis to right lateral knee, Left foot- tenderness to left 2-5th distal metatarsals, ROM intact to foot & ankle, moderate swelling to top of left foot ). No: Redness Neurological: Alert, Oriented, CN II-XII Intact, Normal Cognition, Normal Gait (shuffling), Normal Reflexes, No Motor/Sensory Deficits Psychiatric: Anxious Course - Vital Signs Last Recorded V/S: Last Vital Signs Temp 98.1 F 11/09/20 20:38 Pulse 55 L 11/09/20 20:38 Resp 18 11/09/20 20:38 BP 133/55 L 11/09/20 20:38 Pulse Ox 94 L 11/09/20 20:38 - Orders/Labs/Meds Orders: Active Orders 24 hr Category Date Time Status Foot Comp Min 3V Lt [CR] Stat Exams 11/09/20 20:52 Taken Knee 1V or 2V Rt [CR] Stat Exams 11/09/20 20:52 Taken Meds: Medications Discontinued Medications Generic Name Dose Route Start Last Admin Trade Name Freq PRN Reason Stop Dose Admin Hydrocodone Bitart/Acetaminophen 1 packet 11/09/20 21:55 11/09/20 22:25 Take Home: Acetaminophen/Hydrocodone 325-5 Mg, 2 Tab Pack PO 11/09/20 21:56 1 packet ONETIME ONE Administration Departure - Departure Time of Disposition: 21:43 Disposition: Home, Self-Care 01 Clinical Impression: Foot sprain Qualifiers: Encounter type: initial encounter Laterality: left Qualified Code(s): S93.602A - Unspecified sprain of left foot, initial encounter Contusion of knee, left Qualifiers: Encounter type: initial encounter Qualified Code(s): S80.02XA - Contusion of left knee, initial encounter Fall in home Qualifiers: Encounter type: initial encounter Qualified Code(s): W19.XXXA - Unspecified fall, initial encounter - Discharge Information *PRESCRIPTION DRUG MONITORING PROGRAM REVIEWED*: Not Applicable *COPY OF PRESCRIPTION DRUG MONITORING REPORT IN PATIENT [place]: Not Applicable Instructions: Foot Sprain, Contusion, [id number] Referrals: PCP,None [Primary Care Provider] - Forms: ED Department Discharge Additional Instructions: - Recommend follow up with PCP regarding ongoing shaking with walking and buckling of knees - Ice to affected areas of pain - Continue to wear walking shoe to right foot - Continue to use walker at all times to avoid falls - Tylenol as needed for pain - May use Tennga 1 tablet every 8 hours as needed for severe pain - Recommend follow up with PCP for repeat imaging of foot in 1-2 weeks if pain is ongoing given concern for subtle fracture - Return to ED for emergent issues Sepsis Event Note (ED) - Evaluation Sepsis Screening Result: No Definite Risk - Problem List & Annotations (1) Contusion of knee, left SNOMED Code(s): 71338327 Code(s): S80.02XA - CONTUSION OF LEFT KNEE, INITIAL ENCOUNTER Status: Acute Qualifiers: Encounter type: initial encounter Qualified Code(s): S80.02XA - Contusion of left knee, initial encounter (2) Fall in home SNOMED Code(s): 63580201 Code(s): W19.XXXA - UNSPECIFIED FALL, INITIAL ENCOUNTER; Y92.009 - UNSP PLACE IN UNSP NON-INSTITUT (PRIVATE) RESIDENCE PLACE Status: Acute Qualifiers: Encounter type: initial encounter Qualified Code(s): W19.XXXA - Unspecified fall, initial encounter; Y92.009 - Unspecified place in unspecified non- institutional (private) residence as the place of occurrence of the external cause (3) Foot sprain SNOMED Code(s): 60289709 Code(s): S93.609A - UNSPECIFIED SPRAIN OF UNSPECIFIED FOOT, INITIAL ENCOUNTER Status: Acute Qualifiers: Encounter type: initial encounter Laterality: left Qualified Code(s): S93.602A - Unspecified sprain of left foot, initial encounter - Problem List Review Problem List Initiated/Reviewed/Updated: Yes - My Orders Last 24 Hours: My Active Orders 11/09/20 20:52 Foot Comp Min 3V Lt [CR] Stat Knee 1V or 2V Rt [CR] Stat - Assessment/Plan Last 24 Hours: My Active Orders 11/09/20 20:52 Foot Comp Min 3V Lt [CR] Stat Knee 1V or 2V Rt [CR] Stat Assessment:: Contusion right knee Left foot sprain, questionable fracture of middle phalanx of 4th digit and proximal phalangeal neck of 5th digit Fall at home Unsteady Gait Plan: Xray of foot reveals dorsal forefoot soft tissue swelling with questionable fracture of middle phalanx of 4th digit and proximal phalangeal neck of 5th digit. Xray of knee negative for acute fracture or dislocation, but does show medial and lateral femoral tibial joint space narrowing. Patient was able to ambulate without significant pain. Recommend she continue to wear walking shoe to left foot. Do feel her gait abnormalities are chronic for her. Advised her to see her PCP to discuss ongoing gait issues. Recommend she continue to use walker for safety and fall prevention. Ice affected areas as needed. Tylenol as needed for pain. May use Tennga for severe pain. Recommend she follow up with her PCP. May benefit from some PT for balance and strengthening.
[2020-11-09] MEDS ORDERED: Take Home: Acetaminophen/HYDROcodone 325-5 MG, 2 Tab Pack PO ONE (21:55)
== END 2020-11-09 22:30 | disposition home or self-care (01) ==
LOC: CC.ED 20:38
DX: S93.602A Unspecified sprain of left foot, initial encounter (principal); S80.02XA Contusion of left knee, initial encounter; E78.00 Pure hypercholesterolemia, unspecified; I10 Essential (primary) hypertension; E11.9 Type 2 diabetes mellitus without complications; Z79.4 Long term (current) use of insulin; Z79.899 Other long term (current) drug therapy; Z87.891 Personal history of nicotine dependence; X50.1XXA Overexertion from prolonged static or awkward postures, initial encounter; Y92.009 Unspecified place in unspecified non-institutional (private) residence as the place of occurrence of the external cause
CPT/HCPCS: 73560; 73630; 99283; 99284; A9270

== ENCOUNTER 2023-09-25 11:30 | Emergency (ER) | payer MEDICARE, MEDICAID ==
[2023-09-25] MEDS: methylPREDNISolone Sodium Succinate 125 MG/2 ML SDV IM STA (13:55)
== END 2023-09-25 15:33 | disposition home or self-care (01) ==
LOC: CC.ED 11:30
DX: M48.00 Spinal stenosis, site unspecified (principal); I10 Essential (primary) hypertension; E11.9 Type 2 diabetes mellitus without complications; Z79.4 Long term (current) use of insulin; Z79.899 Other long term (current) drug therapy; Z87.891 Personal history of nicotine dependence; W19.XXXA Unspecified fall, initial encounter
CPT/HCPCS: 72100; 96372; 99283; J2930

== ENCOUNTER 2023-10-17 15:51 | Inpatient (IN) | payer MEDICARE, MEDICAID ==
[2023-10-17 16:42] LABS: BASOPHILS ABSOLUTE AUTO 0.06 10^3/uL (0.00-0.50); BASOPHILS PERCENT AUTO 0.6 % (0-1); EOSINOPHILS ABSOLUTE AUTO 0.36 10^3/uL (0.00-1.50); EOSINOPHILS PERCENT AUTO 3.6 % (0-6); HEMATOCRIT 32.7 % (37.0-47.0); HEMOGLOBIN 9.9 g/dL (12.0-16.0); IMMATURE GRAN ABSOLUTE AUTO 0.02 10^3/uL (0.00-0.49); IMMATURE GRAN PERCENT AUTO 0.2 % (0.0-4.9); LYMPHOCYTES ABSOLUTE AUTO 1.57 10^3/uL (0.60-5.00); LYMPHOCYTES PERCENT AUTO 15.8 % (24-44); MEAN CORPUSCULAR HEMOGLOBIN 28.2 pg (27.0-32.0); MEAN CORPUSCULAR HGB CONC 30.3 g/dL (32.0-36.0); MEAN CORPUSCULAR VOLUME 93.2 fL (83.0-97.0); MONOCYTES ABSOLUTE AUTO 0.85 10^3/uL (0.00-1.50); MONOCYTES PERCENT AUTO 8.6 % (0-10); NEUTROPHILS ABSOLUTE AUTO 7.08 x10^3/uL (1.80-8.00); NEUTROPHILS PERCENT AUTO 71.2 % (41-71); PLATELET COUNT,PLT 400 10^3/uL (150-400); RED BLOOD CELL COUNT 3.51 x10^6/uL (4.00-5.50); WHITE BLOOD CELL COUNT,WBC 9.9 10^3/uL (4.0-11.0)
[2023-10-17 16:56] LABS: ALANINE AMINOTRANSFERASE,ALT 14 U/L (12-78); ALBUMIN 2.7 g/dL (3.4-5.0); ALKALINE PHOSPHATASE 105 U/L (46-116); ASPARTATE AMNIOTRANSFERASE,AST 12 U/L (15-37); BILIRUBIN TOTAL 0.5 mg/dL (0.0-1.0); BLOOD UREA NITROGEN,BUN 16 mg/dL (7-18); C-REACTIVE PROTEIN 2.09 mg/dL (<=0.50); CALCIUM 8.8 mg/dL (8.4-10.1); CARBON DIOXIDE,CO2 28 mmol/L (21-32); CHLORIDE,CL 98 mEq/L (98-106); CREATININE 1.6 mg/dL (0.6-1.0); GLUCOSE RANDOM 141 mg/dL (75-99); POTASSIUM,K 4.3 mEq/L (3.5-5.0); PROTEIN TOTAL,TP 7.8 g/dL (6.4-8.2); SODIUM,NA 134 mEq/L (136-145)
[2023-10-17 16:58] LABS: LACTIC ACID 1.7 mmol/L (0.4-2.0)
[2023-10-17 17:01] LABS: ESTIMATED GFR 35 mL/min (>=60)
[2023-10-17] MEDS ORDERED: VANCOmycin 2 GM/400 ML 400 ML ONE (17:54)
[2023-10-17] MEDS ORDERED: Meropenem 1 GM SDV ONE (17:54)
[2023-10-17] MEDS ORDERED: Acetaminophen 325 MG Tab PO PRN (17:56)
[2023-10-17] MEDS ORDERED: Sodium Chloride 0.9% 10 ML Syringe FLUSH PRN (17:56)
[2023-10-17] MEDS ORDERED: Ondansetron 4 MG Tab.DIS PO PRN (17:56)
[2023-10-17] MEDS ORDERED: Ondansetron 4 MG/2 ML SDV IV PRN (17:56)
[2023-10-17] MEDS: Meropenem 1 GM SDV IVPUSH STA (18:12)
[2023-10-17] MEDS: VANCOmycin 2 GM/400 ML 2 GM in Premix Bag 1 BAG IV ONE (18:17)
== END 2023-10-17 19:20 | DRG 638 ==
LOC: CC.MS 15:51 → UNDOADMIN 15:51 → CC.MS 17:56 → UNDODISIN 19:20
PROVIDERS: ADMIT Physician Assistant Medical; ATTEND Nurse Practitioner Family
DX: E11.69 Type 2 diabetes mellitus with other specified complication (principal); L03.115 Cellulitis of right lower limb; M86.171 Other acute osteomyelitis, right ankle and foot; E11.621 Type 2 diabetes mellitus with foot ulcer; H54.7 Unspecified visual loss; I10 Essential (primary) hypertension; G47.30 Sleep apnea, unspecified; L97.514 Non-pressure chronic ulcer of other part of right foot with necrosis of bone; D64.9 Anemia, unspecified; Z79.4 Long term (current) use of insulin; Z79.899 Other long term (current) drug therapy; Z98.49 Cataract extraction status, unspecified eye; Z98.890 Other specified postprocedural states
CPT/HCPCS: 36415; 73630-RT; 80053; 83605; 85025; 86140; 87040; 87070; 87186; 87205; 99236; J2185; J3370

== ENCOUNTER → 2024-04-09 | Day surgery (SDC) | payer MEDICARE ==
[2024-04-09] MEDS: Lidocaine 1% 30 ML SDV ONE (12:00)
[2024-04-09] MEDS: Lidocaine 1% 30 ML SDV INJECT SCH (12:18)
== END ==
LOC: CC.SDS 10:58
PROVIDERS: ATTEND Family Medicine
DX: I87.2 Venous insufficiency (chronic) (peripheral) (principal); I83.813 Varicose veins of bilateral lower extremities with pain; Z79.82 Long term (current) use of aspirin; Z79.899 Other long term (current) drug therapy; Z79.01 Long term (current) use of anticoagulants
CPT/HCPCS: 36482; 36483; C1888; J3490

== ENCOUNTER 2024-07-03 17:05 | Emergency (ER) | payer MEDICARE ==
[2024-07-03 17:35] VITALS: BP 135/89; PULSE 71
[2024-07-03] MEDS: Take Home: Acetaminophen/oxyCODONE 325-5 MG, 2 Tab Pack PO ONE (18:06)
[2024-07-03] MEDS: Take Home: predniSONE 20 MG, 2 Tab Pack PO ONE (18:07)
[2024-07-03] MEDS: Take Home: Acetaminophen/HYDROcodone 325-5 MG, 2 Tab Pack PO ONE (18:15)
== END 2024-07-03 19:00 | disposition home or self-care (01) ==
LOC: CC.ED 17:05
DX: M25.511 Pain in right shoulder (principal); I10 Essential (primary) hypertension; E11.9 Type 2 diabetes mellitus without complications; Z79.4 Long term (current) use of insulin; Z79.899 Other long term (current) drug therapy; Z79.01 Long term (current) use of anticoagulants
CPT/HCPCS: 73030-RT; 99283; A9270-GY; J7512